=== PATIENT | female | born 1965 | race Caucasian/White ===

== ENCOUNTER 2019-02-25 19:47 | Inpatient (IN) | payer MEDICARE ==
[~2019-02-25] VITALS: Ht 157.5 cm; Wt 59.4 kg
--- NOTE | 2019-02-25 20:40 | NUR ---
Dr. Syed at bedside for MSE.
[2019-02-25] MEDS ORDERED: IV NORMAL SALINE 1000 ML BAG IV ONE (20:45)
[2019-02-25] MEDS ORDERED: ONDANSETRON 4 MG/2 ML VIAL IV ONE (20:45)
--- NOTE | 2019-02-25 20:57 | NUR ---
Xray at bedside.
[2019-02-25] MEDS ORDERED: ONDANSETRON 4 MG/2 ML VIAL ONE (21:01)
[2019-02-25 21:04] LABS: BASOPHILS % (AUTO) 0.2 % (0.0-2.0); EOSINOPHILS % (AUTO) 0.1 % (0.0-7.0); HEMATOCRIT 28.7 % (31.2-41.9); LYMPHOCYTES # (AUTO) 0.1 K/uL (20.0-40.0); MEAN CORPUSCULAR HGB CONC 32 g/dL (32.3-35.6); MEAN CORPUSCULAR VOLUME 72.9 fL (75.5-95.3); MONOCYTES # (AUTO) 0.4 K/uL (2.0-10.0); MONOCYTES % (AUTO) 6.4 % (0.0-11.0); NEUTROPHILS # (AUTO) 5.7 K/uL (1.8-8.9); NEUTROPHILS % (AUTO) 92.3 % (38.5-71.5); PLATELET COUNT (AUTO) 143 K/uL (179-408); RED BLOOD CELL COUNT(AUTO) 3.93 MIL/uL (3.63-4.92); WHITE BLOOD COUNT (AUTO) 6.1 K/uL (3.8-11.8)
[2019-02-25 21:16] LABS: BILIRUBIN,DIRECT 0.2 mg/dL (0.0-0.2); BILIRUBIN,TOTAL 0.7 mg/dL (0.2-1.0); CREATININE 0.6 mg/dL (0.6-1.3); POTASSIUM 3.9 mmol/L (3.5-5.1); TOTAL PROTEIN, SERUM 5.8 g/dL (6.4-8.2)
--- NOTE | 2019-02-25 21:55 | NUR ---
Dr. Syed on panel call with Dr. Samano.
[2019-02-25] MEDS ORDERED: CALC600T12 PO (22:12)
[2019-02-25] MEDS ORDERED: FLUO40CA49 PO (22:12)
[2019-02-25] MEDS ORDERED: CHOL100043 PO (22:12)
[2019-02-25] MEDS ORDERED: [UNRECOGNIZED DRUG - OTHER] PO (22:12)
[2019-02-25] MEDS ORDERED: FING0.5C3 PO (22:12)
[2019-02-25] MEDS ORDERED: RISE150T PO (22:12)
[2019-02-25] MEDS ORDERED: BACL10TA PO ×2 (22:12)
--- NOTE | 2019-02-25 22:54 | NUR ---
Report given to [place] [facility].
[2019-02-25] MEDS ORDERED: MAGNESIUM HYDROXIDE 30 ML LIQUID UDC PO PRN (23:45)
[2019-02-25] MEDS ORDERED: Z GUARD REMEDY PASTE 57 GM TUBE TOP PRN (23:45)
[2019-02-25] MEDS ORDERED: ONDANSETRON 4 MG/2 ML VIAL IV PRN (23:45)
[2019-02-25] MEDS ORDERED: HYDROCODONE/APAP 5-325MG TABLET PO PRN (23:45)
[2019-02-25] MEDS: IV NS 1000 ML 1,000 ML IV PRN (23:54)
[2019-02-25] MEDS: ACETAMINOPHEN 325 MG TABLET PO PRN (23:54)
[2019-02-26] VITALS: BP 100/41
--- NOTE | 2019-02-26 00:45 | NUR ---
PATIENT IS A 53 Y.O. FEMALE ADMIITED FOR BILATERAL LOWER EXTREMITIES WEAKNESS, SHE'S AAOX4, DENIES PAIN OR ANY DISTRESS ON ASSESSMENT. SAFETY AND FALL PRECAUTIONS INITIATED. CALL LIGHT LEFT WITHIN PATIENT'S REACH
[2019-02-26 06:29] LABS: EOSINOPHILS % (AUTO) 0.2 % (0.0-7.0); HEMATOCRIT 25.2 % (31.2-41.9); HEMOGLOBIN 7.9 g/dL (10.9-14.3); LYMPHOCYTES # (AUTO) 0.1 K/uL (20.0-40.0); LYMPHOCYTES % (AUTO) 2.7 % (20.5-51.5); MEAN CORPUSCULAR HGB CONC 31 g/dL (32.3-35.6); MEAN CORPUSCULAR VOLUME 73.7 fL (75.5-95.3); MONOCYTES # (AUTO) 0.3 K/uL (2.0-10.0); MONOCYTES % (AUTO) 8.6 % (0.0-11.0); NEUTROPHILS # (AUTO) 2.6 K/uL (1.8-8.9); NEUTROPHILS % (AUTO) 88.5 % (38.5-71.5); PLATELET COUNT (AUTO) 120 K/uL (179-408); RED BLOOD CELL COUNT(AUTO) 3.42 MIL/uL (3.63-4.92)
[2019-02-26 06:35] VITALS: BP 91/48
--- NOTE | 2019-02-26 06:45 | NUR ---
PATIENT ASLEEP WITH NO C/O OF PAIN OR ACUTE DISTRESS AT PRESENT. NO SIGNIFICANT CHANGES IN STATUS. SAFETY MEASURES MAINTAINED AT ALL TIMES
[2019-02-26 06:50] LABS: BILIRUBIN,TOTAL 0.6 mg/dL (0.2-1.0); CREATININE 0.7 mg/dL (0.6-1.3); PHOSPHOROUS 4.1 mg/dL (2.5-4.9); POTASSIUM 3.5 mmol/L (3.5-5.1); TOTAL PROTEIN, SERUM 5.1 g/dL (6.4-8.2)
--- NOTE | 2019-02-26 08:00 | NUR ---
AWAKE ALERT AND ORIENTED X3 NO SS OF PAIN OR DISTRESS BUT STILL C/O GEN WEAKNESS. CONTINUE WITH IVF ORDERED AND WILL START PHYSICAL THERAPY.
--- NOTE | 2019-02-26 11:00 | NUR ---
SEEN BY PHYSICAL THERAPY FOR EVAL, AMBULATED AROUND THE HALLWAY SEE NOTES
[2019-02-26 11:35] VITALS: BP 100/47
--- NOTE | 2019-02-26 13:26 | NUR ---
SEEN BY DR BERNAL FOR FOLLOW-UP AND DISCUSSED PLAN OF CARE. PLAN DISCHARGE OR ARU TODAY
[2019-02-26] MEDS: IV NS 1000 ML 1,000 ML IV PRN (14:25)
[2019-02-26 15:28] VITALS: BP 98/44
[2019-02-26 19:29] LABS: *BILIRUBIN,URIN NEGATIVE (NEGATIVE); *BLOOD, URINE NEGATIVE (NEGATIVE); *CLARITY,URINE CLEAR (CLEAR); *COLOR,URINE YELLOW (YELLOW); *KETONES,URINE NEGATIVE (NEGATIVE); *UROBILINOGEN,URINE 0.2 E.U./dl (NORMAL); LEUKOCYTE ESTERASE ,URINE NEGATIVE (NEGATIVE); NITRITE, URINE NEGATIVE (NEGATIVE); UGLUCOSE NEGATIVE (NEGATIVE)
[2019-02-26 19:38] LABS: MUCUS,URINE MODERATE /LPF (0-FEW); SQUAMOUS EPITHELIAL CELL,UR FEW /HPF (NONE SEEN); WBC,URINE 0-3 /HPF (0-3)
[2019-02-26 20:03] VITALS: BP 103/55
[2019-02-26] MEDS: ACETAMINOPHEN 325 MG TABLET PO PRN (20:27)
--- NOTE | 2019-02-26 20:55 | NUR ---
Received patient from the day shift. Patient is AOx4. No acute distress noted at this time. Reports headache 12/28. Tylenol given. Denies SOB. IV on right AC is intact and patent is on NS running at 75ml/hr. SCD are working bilaterally. Comfort and safety measures implemented. Bed is in low and locked position, rails are up x2. Call light within reach. All needs are met at this time. Will continue to monitor through the shift.
[2019-02-27 04:34] VITALS: BP 111/55
[2019-02-27] MEDS: IV NS 1000 ML 1,000 ML IV PRN (05:00)
--- NOTE | 2019-02-27 06:47 | NUR ---
Patient is asleep through the shift, denied pain. Comfort and safety measures implemented. Bed is in low and locked position, rails are up x2. Call light within reach. All needs are met at this time. Will endorse the report to the day shift.
--- NOTE | 2019-02-27 07:40 | NUR ---
IN BED RESTING WITH EYES CLOSE NO SS OF PAIN OR SS OF DISTRESS. CLOSELY MONITORED
--- NOTE | 2019-02-27 09:15 | NUR ---
SEEN BY DR BERNAL AND DISCUSSED PLAN OF CARE. POSSIBLE DC TO ARU THIS PM
[2019-02-27 11:38] VITALS: BP 112/49
--- NOTE | 2019-02-27 13:55 | NUR ---
AWAITING ORDER FOR TRANSFER TO ARU
--- NOTE | 2019-02-27 15:05 | NUR ---
TO SURGERY VIA BED WITH OR STAFF Addendum: 02/27/19 at 1512 by JUAN FRANCISCO HERNANDEZ RN ERROR
[2019-02-27 15:12] VITALS: BP 118/64
--- NOTE | 2019-02-27 15:36 | NUR ---
REPORT GIVEN TO MOLLY KOWALSKI TRANSFERRED TO ARU VIA WHEELCHAIR ACCOMPANIED BY STAFF
== END 2019-02-27 15:30 | DRG 392 ==
LOC: ER 19:47 → TELE3 22:58 → MEDSURG3 23:54
PROVIDERS: ADMIT Internal Medicine; ATTEND Internal Medicine
DX: K29.70 Gastritis, unspecified, without bleeding (principal); C50.912 Malignant neoplasm of unspecified site of left female breast; Z92.3 Personal history of irradiation; G35 Multiple sclerosis; D69.6 Thrombocytopenia, unspecified; D63.8 Anemia in other chronic diseases classified elsewhere; Z79.899 Other long term (current) drug therapy
CPT/HCPCS: 36415; 70030-TC; 71045; 83690; 84100; 85025; 85730; 87086; 93005; 97116; 97530; A4663; C1758; G0378; J2405; J7030

== ENCOUNTER 2019-02-27 15:10 | Inpatient (IN) | payer MEDICARE ==
[~2019-02-27] VITALS: Ht 157.5 cm; Wt 63.0 kg
[~2019-02-27 15:10] MED LIST: BACL10TA PO; CALC600T12 PO; CHOL100043 PO; FING0.5C3 PO; FLUO40CA49 PO; RISE150T PO
[2019-02-27 16:02] VITALS: BP 119/60
--- NOTE | 2019-02-27 18:20 | NUR ---
Admitted a 53 years old female patient at 1545 from [facility]. Pt. is under the care of Dr. Mari and Dr. Samano who came with the following dx: MS, bilateral lower extremity weakness, and breast CA on radiation. Patient has allergies to PCN. Patient is full code. Patient is A/Ox4 verbally responsive and able to make her needs known. No SOB or acute distress, on RA and tolerating well. Denies pain during assessment. Initial skin assessment performed, skin intact. Noted with RAC 20G, patent and intact. All pt. needs attended and met promptly. Lungs sounds clear to auscultation. MRSA swab completed per unit protocol. Pt. on a regular diet. Dr. Mari made aware of pt. admission. Called Dr. Samano and aware [facility] is needed. Kept pt. clean and dry. Safety measures in place. Call light and all frequently used items within pt. reach. Emphasize use of call light system, pt. verbalized clear understanding. Will endorse to oncoming shift accordingly.
--- NOTE | 2019-02-27 19:35 | NUR ---
Received patient in bed. AAO x 4. No acute distress or SOB noted. Able to make needs known. On room air. No Complain of pain. Pertinent assessments done. IV line on right AC intact, no sign of inflammation. Safety measures maintained. Bed in low position, brake and alarm on, side rails up x2 for safety. Call light and personal belongings within reach. Will continue to monitor
[2019-02-27 20:04] VITALS: BP 108/47
[2019-02-27] MEDS ORDERED: Medication Not On Formulary EA (Fluoxetine Hcl 40 MG) PO SCH (21:45)
[2019-02-27] MEDS: CALCIUM CARBONATE 600 MG TABLET PO SCH (21:45)
[2019-02-27] MEDS: BACLOFEN 10 MG TABLET PO SCH (22:04)
[2019-02-27] MEDS: CHOLECALCIFEROL 1,000 UNIT TABLET PO SCH (22:04)
--- NOTE | 2019-02-28 04:40 | NUR ---
End of the shift note Patient was stable throughout the shift and had a good sleep last night. No signs of acute distress or SOB noted. No Complain of pain. All due medication given as ordered and well tolerated. IV line in the right AC flushed, patent, no sign of inflammation. All needs attended promptly. Safety measures observed. Fall prevention maintained. Bed in low position, brake and alarm on, side rails up x2 for her safety. Will continue to monitor and will endorse to oncoming nurse accordingly.
[2019-02-28 04:49] VITALS: BP 115/57
[2019-02-28] MEDS ORDERED: Z GUARD REMEDY PASTE 57 GM TUBE TOP PRN (06:30)
--- NOTE | 2019-02-28 07:45 | NUR ---
Patient awake, alert, in bed, not in any form of acute distress. She denies any pain or discomfort at this time. Assisted with her needs. Call light placed within reach.
[2019-02-28 08:08] VITALS: BP 115/60
[2019-02-28] MEDS: BACLOFEN 10 MG TABLET PO SCH ×2 (09:48→18:21)
[2019-02-28] MEDS: CHOLECALCIFEROL 1,000 UNIT TABLET PO SCH (09:48)
[2019-02-28] MEDS: CALCIUM CARBONATE 600 MG TABLET PO SCH ×2 (09:48→18:21)
[2019-02-28] MEDS: FLUOXETINE HCL 20 MG CAPSULE PO SCH (09:55)
[2019-02-28 10:41] VITALS: BP 115/60
--- NOTE | 2019-02-28 12:33 | NUR ---
Received an order from Dr. Mari for tylenol 650mg PO Q 6 hrs PRN for complain of headache. Order carried out.
[2019-02-28] MEDS: ACETAMINOPHEN 325 MG TABLET PO PRN (13:27)
[2019-02-28 18:22] VITALS: BP 97/50
[2019-02-28 21:01] VITALS: BP 98/41
--- NOTE | 2019-02-28 21:37 | NUR ---
aaox4 ambulates to the BR with walker. incontinent of urine x2 at times.kept clean and dry no acute distress noted. denies any pain nor any discomfort. will monitor patient. tolerated po meds. no complaints of pain nor any discomfort. VSS.
[2019-03-01 05:11] VITALS: BP 109/41
--- NOTE | 2019-03-01 06:49 | NUR ---
slept well. needs attended. denies any pain nor any discomfort. kept comfortable. will monitor patient. fall precautions maintained. siderails up for safety.
[2019-03-01 07:25] VITALS: BP 105/47
[2019-03-01] MEDS: BACLOFEN 10 MG TABLET PO SCH ×2 (08:48→16:27)
[2019-03-01] MEDS: CHOLECALCIFEROL 1,000 UNIT TABLET PO SCH (08:48)
[2019-03-01] MEDS: CALCIUM CARBONATE 600 MG TABLET PO SCH ×2 (08:48→16:27)
[2019-03-01] MEDS: FLUOXETINE HCL 20 MG CAPSULE PO SCH (08:49)
[2019-03-01] MEDS ORDERED: [UNRECOGNIZED DRUG - OTHER] PO SCH (09:00)
--- NOTE | 2019-03-01 09:52 | NUR ---
Received pt. on bed, comfortable in no distress. A/Ox4 verbally responsive and able to make her needs known. Denies CP or SOB, on RA tolerating well with 95% SpO2. IV access on RAC d/c'd by previous shift, no bleeding. All due medications administered as ordered and tolerated well. All pt. needs attended and met promptly. Safety measures in place. Call light and all frequently used items within pt. reach.
[2019-03-01 16:18] VITALS: BP 107/45
--- NOTE | 2019-03-01 18:04 | NUR ---
End of shift note: No significant change during this shift. No sign of acute distress or SOB was noted. Kept pt clean and dry throughout this shift. Safety measures maintained. All needs attended and met promptly. Bed in low position, brake on, side rails up x2 as an enabler. Call light and all frequently used items within pt. reach. Will endorse to next shift accordingly
[2019-03-01 19:34] VITALS: BP 104/50
--- NOTE | 2019-03-01 21:11 | NUR ---
Received pt in bed, AAO x 4 in bed watching television. No acute distress noted. Verbally responsive and able to make needs known. Denies pain or discomfort at this time. Assisted to the bathroom x 1 using own walker with standby assistance. Tolerated well. Assisted back into bed. All safety measures and fall precautions maintained. Call light and all personal belongings within reach. Will continue to monitor.
[2019-03-02 06:35] VITALS: BP 93/48
--- NOTE | 2019-03-02 06:39 | NUR ---
AM vital signs noted to be 93/48 with HR 71, temp 98, RR 18. No acute distress noted. Pt denies any pain or discomfort, CP, SOB. Pt verbalized "feeling groggy, but not sick." Placed in trendelenberg, encouraged pt to increase PO fluid intake. Will re-check BP. Safety maintained. Call light within reach. Will continue to monitor.
--- NOTE | 2019-03-02 06:56 | NUR ---
Re-checked blood pressure, noted to be 113/53 with HR of 66. Pt verbalized feeling better, and feeling less groggy. Safety maintained. Call light within reach. No acute distress noted. Encouraged increased PO fluid intake, pt verbalized understanding. Will endorse accordingly to oncoming shift.
[2019-03-02 09:00] VITALS: BP 105/53
[2019-03-02] MEDS: FLUOXETINE HCL 20 MG CAPSULE PO SCH (09:02)
[2019-03-02] MEDS: CHOLECALCIFEROL 1,000 UNIT TABLET PO SCH (09:02)
[2019-03-02] MEDS: BACLOFEN 10 MG TABLET PO SCH ×2 (09:02→16:13)
[2019-03-02] MEDS: CALCIUM CARBONATE 600 MG TABLET PO SCH ×2 (09:03→16:14)
--- NOTE | 2019-03-02 09:26 | NUR ---
Received pt. on bed, comfortable in no distress. A/Ox4 verbally responsive and able to make her needs known. Denies CP or SOB, on RA tolerating well with 96% SpO2. All due medications administered as ordered and tolerated well. All pt. needs attended and met promptly. Safety measures in place. Call light and all frequently used items within pt. reach.
[2019-03-02 16:37] VITALS: BP 96/43
--- NOTE | 2019-03-02 16:59 | NUR ---
[employer] assessment completed today.
--- NOTE | 2019-03-02 19:40 | NUR ---
Received patient in bed. AAO x 4. Able to make needs known. No acute distress or SOB noted. Able to make needs known. On room air. No Complain of pain at this time. Pertinent assessments done. Safety measures maintained. Bed in low position, brake and alarm on, side rails up x2 for safety. Call light and personal belongings within reach. Will continue to monitor.
[2019-03-02 19:50] VITALS: BP 114/39
--- NOTE | 2019-03-03 05:39 | NUR ---
End of the shift note Patient was stable throughout the shift and had a good sleep last night. No signs of acute distress or SOB noted. No Complain of pain. All due medication given as ordered and well tolerated. Assisted her to the bathroom as needed. All needs attended promptly. Safety measures observed. Fall prevention maintained. Bed in low position, brake and alarm on, side rails up x2 for her safety. Will continue to monitor and will endorse to oncoming nurse accordingly.
[2019-03-03 06:07] VITALS: BP 96/56
--- NOTE | 2019-03-03 07:58 | NUR ---
RECEIVED PATIENT ASLEEP IN BED, NO ACUTE DISTRESS NOTED AT THIS TIME
[2019-03-03 08:45] VITALS: BP 96/46
[2019-03-03] MEDS: BACLOFEN 10 MG TABLET PO SCH ×2 (08:52→17:14)
[2019-03-03] MEDS: CALCIUM CARBONATE 600 MG TABLET PO SCH ×2 (08:52→17:15)
[2019-03-03] MEDS: CHOLECALCIFEROL 1,000 UNIT TABLET PO SCH (08:52)
[2019-03-03] MEDS: FLUOXETINE HCL 20 MG CAPSULE PO SCH (08:53)
--- NOTE | 2019-03-03 15:07 | NUR ---
examined by JUSTINE Mccarthy, reported about patient's blood pressure 96/46. However patient is asymptomatic at this time, and patient verbalized that her systolic blood pressure stays in 90s and diastolic stays in 50s. patient is alert, oriented x4, patient denied any dizziness. continue to monitor. Addendum: 03/03/19 at 1513 by SYDNEY MCKEON RN per JUSTINE Mccarthy continue to monitor, no new orders at this time.
[2019-03-03 17:30] VITALS: BP 100/49
--- NOTE | 2019-03-03 18:52 | NUR ---
PATIENT IS ALERT, ORIENTED X4, NO SOB, RESP EVEN NONLABORED,SKIN WARM AND DRY TO TOUCH, PATIENT TOLERATED PT, OT WELL, ASSISTED WITH ADLS, TOLERATED MEALS AND MEDS WELL, PATIENT DENIED ANY PAIN DURING THE SHIFT, WILL ENDORSE ACCORDINGLY TO NEXT SHIFT
[2019-03-03 20:20] VITALS: BP 122/56
--- NOTE | 2019-03-03 20:46 | NUR ---
resting in bed upon initial rounds. aaox4 no acute distress noted. needs attended. VSS. OOB to BR with walker under supervision. Voiding freely. Denies any pain nor any discomfort. Will monitor patient. BP 122/56 HR 78 Resp 18 Temp 98.2 Kept comfortable. Fall precautions maintained. Siderails up for safety. Call ramsey within reach.
[2019-03-04 04:25] VITALS: BP 102/48
--- NOTE | 2019-03-04 06:14 | NUR ---
quiet night. aaox4 no acute distress noted. needs attended. VSS oob to the BR with walker. Voiding well. will monitor patient. kept comfortable.
[2019-03-04 07:15] LABS: BASOPHILS % (AUTO) 0.6 % (0.0-2.0); EOSINOPHILS # (AUTO) 0.1 K/uL (0.0-0.7); EOSINOPHILS % (AUTO) 1.6 % (0.0-7.0); HEMATOCRIT 26.8 % (31.2-41.9); HEMOGLOBIN 8.5 g/dL (10.9-14.3); LYMPHOCYTES # (AUTO) 0.2 K/uL (20.0-40.0); LYMPHOCYTES % (AUTO) 5.3 % (20.5-51.5); MEAN CORPUSCULAR HGB CONC 32 g/dL (32.3-35.6); MEAN CORPUSCULAR VOLUME 72.3 fL (75.5-95.3); MONOCYTES # (AUTO) 0.5 K/uL (2.0-10.0); MONOCYTES % (AUTO) 12.1 % (0.0-11.0); NEUTROPHILS # (AUTO) 3.4 K/uL (1.8-8.9); NEUTROPHILS % (AUTO) 80.4 % (38.5-71.5); PLATELET COUNT (AUTO) 273 K/uL (179-408); WHITE BLOOD COUNT (AUTO) 4.3 K/uL (3.8-11.8)
[2019-03-04 07:27] LABS: BILIRUBIN,TOTAL 0.3 mg/dL (0.2-1.0); CREATININE 0.5 mg/dL (0.6-1.3); POTASSIUM 4.8 mmol/L (3.5-5.1); TOTAL PROTEIN, SERUM 5.8 g/dL (6.4-8.2)
[2019-03-04 07:42] LABS: EOSINOPHILS % (MANUAL) 1 % (0-8); LYMPHOCYTES % (MANUAL) 9 % (20-40); MONOCYTES % (MANUAL) 6 % (2-10); NEUTROPHILS % (MANUAL) 84 % (42-75)
[2019-03-04 07:56] LABS: THYROID STIMULATING HORMONE 0.976 mIU/mL (0.358-3.740)
--- NOTE | 2019-03-04 08:04 | NUR ---
Patient assisted with ADL's at this time, brace applied to right leg, took all AM medications, no complaints of pain, no signs of distress noted, call light in reach, bed locked and in lowest position, all needs known
[2019-03-04] MEDS: FLUOXETINE HCL 20 MG CAPSULE PO SCH (08:30)
[2019-03-04] MEDS: BACLOFEN 10 MG TABLET PO SCH ×2 (08:30→17:39)
[2019-03-04] MEDS: CALCIUM CARBONATE 600 MG TABLET PO SCH ×2 (08:31→17:39)
[2019-03-04] MEDS: CHOLECALCIFEROL 1,000 UNIT TABLET PO SCH (08:31)
[2019-03-04 09:00] VITALS: BP 97/40
--- NOTE | 2019-03-04 17:55 | NUR ---
No changes this shift, no complaints of pain, no signs of distress noted, assisted to restroom for toileting
[2019-03-04 18:07] VITALS: BP 100/42
[2019-03-04 19:44] VITALS: BP 98/50
--- NOTE | 2019-03-04 20:13 | NUR ---
aaox 4 needs attended. resting in bed upon initial rounds. VSS. OOB to the BR with walker. voiding well. making needs known. denies any pain nor any discomfort. will monitor patient.
[2019-03-05 06:20] VITALS: BP 108/54
--- NOTE | 2019-03-05 06:23 | NUR ---
slept well most of the night. denies any pain nor any distress. ambulates to the BR with walker. making needs known. VSS.
[2019-03-05] MEDS: FLUOXETINE HCL 20 MG CAPSULE PO SCH (08:10)
[2019-03-05] MEDS: BACLOFEN 10 MG TABLET PO SCH ×2 (08:10→16:21)
[2019-03-05] MEDS: CALCIUM CARBONATE 600 MG TABLET PO SCH ×2 (08:10→16:21)
[2019-03-05] MEDS: CHOLECALCIFEROL 1,000 UNIT TABLET PO SCH (08:10)
--- NOTE | 2019-03-05 08:15 | NUR ---
Patient assisted to restroom at this time, assisted with dressing, no complaints of pain, no signs of distress, call light in reach, bed locked and in lowest position, took all AM medications, all needs met at this time
[2019-03-05 08:35] VITALS: BP 103/48
[2019-03-05 18:10] VITALS: BP 100/51
[2019-03-05 19:20] VITALS: BP 101/56
--- NOTE | 2019-03-05 19:47 | NUR ---
resting in bed watching TV upon initial rounds. aaox4 no acute distress noted kept comfortable. will monitor patient. VSS. making needs known. ambulates with walker to the BR. voiding well.
[2019-03-06 06:07] VITALS: BP 97/47
--- NOTE | 2019-03-06 06:52 | NUR ---
quiet night. slept well throughout the night.VSS needs attended. OOB with walker to the BR. Voiding freely. Denies any pain nor any discomfort. making needs attended.
[2019-03-06 07:11] LABS: BASOPHILS % (AUTO) 0.3 % (0.0-2.0); EOSINOPHILS # (AUTO) 0.1 K/uL (0.0-0.7); EOSINOPHILS % (AUTO) 1.2 % (0.0-7.0); HEMATOCRIT 27.1 % (31.2-41.9); HEMOGLOBIN 8.5 g/dL (10.9-14.3); LYMPHOCYTES # (AUTO) 0.3 K/uL (20.0-40.0); LYMPHOCYTES % (AUTO) 4.9 % (20.5-51.5); MEAN CORPUSCULAR HEMOGLOBIN 22.6 uug (24.7-32.8); MEAN CORPUSCULAR HGB CONC 31 g/dL (32.3-35.6); MEAN CORPUSCULAR VOLUME 72.2 fL (75.5-95.3); MONOCYTES # (AUTO) 0.7 K/uL (2.0-10.0); MONOCYTES % (AUTO) 12.3 % (0.0-11.0); NEUTROPHILS # (AUTO) 4.5 K/uL (1.8-8.9); NEUTROPHILS % (AUTO) 81.3 % (38.5-71.5); PLATELET COUNT (AUTO) 267 K/uL (179-408); RED BLOOD CELL COUNT(AUTO) 3.76 MIL/uL (3.63-4.92)
[2019-03-06 07:20] LABS: WHITE BLOOD COUNT (AUTO) 5.6 K/uL (3.8-11.8)
--- NOTE | 2019-03-06 07:42 | NUR ---
Received patient in bed, awake, alert, not in any form of acute distress. She denies any pain or discomfort at this time. Frequently used items placed within reach. Call light placed within reach.
[2019-03-06 07:52] LABS: BASOPHILS % (MANUAL) 1 % (0-2); LYMPHOCYTES % (MANUAL) 4 % (20-40); MONOCYTES % (MANUAL) 9 % (2-10); NEUTROPHILS % (MANUAL) 86 % (42-75)
[2019-03-06 07:53] LABS: BILIRUBIN,TOTAL 0.2 mg/dL (0.2-1.0); CREATININE 0.5 mg/dL (0.6-1.3); PHOSPHOROUS 4.3 mg/dL (2.5-4.9); TOTAL PROTEIN, SERUM 5.8 g/dL (6.4-8.2)
[2019-03-06 08:45] VITALS: BP 101/47
[2019-03-06] MEDS: FLUOXETINE HCL 20 MG CAPSULE PO SCH (08:48)
[2019-03-06] MEDS: BACLOFEN 10 MG TABLET PO SCH ×2 (08:48→17:00)
[2019-03-06] MEDS: CALCIUM CARBONATE 600 MG TABLET PO SCH ×2 (08:48→17:00)
[2019-03-06] MEDS: CHOLECALCIFEROL 1,000 UNIT TABLET PO SCH (08:48)
--- NOTE | 2019-03-06 13:38 | NUR ---
INTERDISCIPLINARY TEAM CONFERENCE
[2019-03-06 16:45] VITALS: BP 103/45
--- NOTE | 2019-03-06 19:50 | NUR ---
Received pt in bed, AAO x 4 with family member at bedside. No acute distress noted. Verbally responsive and able to make needs known. Denies pain or discomfort at this time. All safety measures and fall precautions maintained. Call light and all personal belongings within reach. Will continue to monitor.
[2019-03-06 20:01] VITALS: BP 97/49
[2019-03-06] MEDS: ATORVASTATIN 10 MG TABLET PO SCH (21:14)
[2019-03-07 05:15] VITALS: BP 116/50
--- NOTE | 2019-03-07 07:45 | NUR ---
patient received in bed, awake, alert, oriented x4, verbally responsive, no sob, resp even nonlabored, no acute distress noted.
[2019-03-07 08:00] VITALS: BP 96/48
[2019-03-07] MEDS: BACLOFEN 10 MG TABLET PO SCH ×2 (08:45→16:52)
[2019-03-07] MEDS: CHOLECALCIFEROL 1,000 UNIT TABLET PO SCH (08:46)
[2019-03-07] MEDS: FERROUS GLUCONATE 324 MG TABLET PO SCH ×2 (08:46→17:06)
[2019-03-07] MEDS: CALCIUM CARBONATE 600 MG TABLET PO SCH ×2 (08:46→16:52)
[2019-03-07] MEDS: FLUOXETINE HCL 20 MG CAPSULE PO SCH (08:49)
[2019-03-07 16:43] VITALS: BP 119/72
--- NOTE | 2019-03-07 18:34 | NUR ---
patient is alert, oriented x4, verbally responsive, no sob, resp even nonlabored,no acute distress noted, assisted to bathroom as needed.
[2019-03-07 19:45] VITALS: BP 112/76
--- NOTE | 2019-03-07 19:53 | NUR ---
Received patient in bed. AAO x 4. Able to make needs known. No acute distress or SOB noted. Able to make needs known. On room air. No Complain of pain at this time. Her mother was at bedside. Pertinent assessments done. Fall precaution observed. Safety measures maintained. Bed in low position, brake and alarm on, side rails up x2 for safety. Call light and personal belongings within reach. Will continue to monitor.
[2019-03-07] MEDS: ATORVASTATIN 10 MG TABLET PO SCH (20:24)
[2019-03-07 20:34] LABS: *BILIRUBIN,URIN NEGATIVE (NEGATIVE); *BLOOD, URINE NEGATIVE (NEGATIVE); *CLARITY,URINE CLOUDY (CLEAR); *COLOR,URINE LIGHT YELLOW (YELLOW); *KETONES,URINE NEGATIVE (NEGATIVE); *UROBILINOGEN,URINE 0.2 E.U./dl (NORMAL); LEUKOCYTE ESTERASE ,URINE 2+ (NEGATIVE); NITRITE, URINE POSITIVE (NEGATIVE); UGLUCOSE NEGATIVE (NEGATIVE)
[2019-03-07 20:52] LABS: BACTERIA,URINE MANY /HPF (NONE SEEN); RBC,URINE 0-3 /HPF (0-3); SQUAMOUS EPITHELIAL CELL,UR FEW /HPF (NONE SEEN); WBC,URINE 80-100 /HPF (0-3)
[2019-03-08 06:22] VITALS: BP 109/54
--- NOTE | 2019-03-08 07:46 | NUR ---
patient received in bed, asleep, no sob,resp even nonlabored,skin warm and dry to touch, no acute distress noted.
[2019-03-08 09:00] VITALS: BP 100/50
[2019-03-08] MEDS: CHOLECALCIFEROL 1,000 UNIT TABLET PO SCH (09:02)
[2019-03-08] MEDS: BACLOFEN 10 MG TABLET PO SCH ×2 (09:03→17:19)
[2019-03-08] MEDS: CALCIUM CARBONATE 600 MG TABLET PO SCH ×2 (09:03→17:19)
[2019-03-08] MEDS: FLUOXETINE HCL 20 MG CAPSULE PO SCH (09:04)
[2019-03-08] MEDS: FERROUS GLUCONATE 324 MG TABLET PO SCH ×2 (09:05→17:25)
--- NOTE | 2019-03-08 09:45 | NUR ---
reported UA result to dr Freitas with order to start on Bactrim DS 1 tab twice a day for 7 days, order noted.
[2019-03-08] MEDS: SULFAMETH/TRIMETH 800/160 MG TABLET PO SCH ×2 (10:56→17:19)
--- NOTE | 2019-03-08 12:14 | NUR ---
patient is alert, oriented x4, verbally responsive, no sob respirations are even nonlabored,skin warm and dry to touch, started on Bactrim DS as ordered for UTI, first dose administered, instructions and education given for antibiotic therapy, patient verbalized understanding, no adverse reactions noted, no nausea, no vomiting, no rashes. patient noted with frequency, urine is cloudy and with odor, good perineal care provided, encouraged patient to drink more fluids as tolerated, continue to monitor vitals are 100/50, pulse 84,resp 16,temp 98.0, o2 sat at room air 97% taken at 9am.
[2019-03-08 13:53] LABS: *OCCULT BLOOD STOOL NEGATIVE (NEGATIVE)
[2019-03-08 17:30] VITALS: BP 120/60
--- NOTE | 2019-03-08 18:17 | NUR ---
End of shift note patient is alert, oriented x4, no sob,respirations even nonlabored,skin warm and dry to touch, continue on Bactrim DS as ordered, no adverse reactions noted, such as no nausea, no vomiting, no rashes noted, patient tolerated meals and meds well, Assisted with adls. encouraged to drink more fluids as tolerated, education given on good perineal care, patient verbalized understanding. no acute distress noted.
[2019-03-08 19:45] VITALS: BP 99/56
[2019-03-08] MEDS: ATORVASTATIN 10 MG TABLET PO SCH (20:39)
--- NOTE | 2019-03-08 21:18 | NUR ---
awake alert and oriented x4 OOB with walker to BR. Voiding freely. no acute distress noted. Needs attended. VSS Denies any pain nor any discomfort. compliant with meds and care. fall precautions maintained. siderails up for safety.
[2019-03-09 05:41] VITALS: BP 103/45
--- NOTE | 2019-03-09 05:54 | NUR ---
OOB to the BR with walker x4 voiding well. needs attended. denies any pain nor any discomfort. BP 101/45 patient asymptomatic. no acute distress noted.
[2019-03-09] MEDS: SULFAMETH/TRIMETH 800/160 MG TABLET PO SCH ×2 (08:05→17:27)
[2019-03-09] MEDS: CHOLECALCIFEROL 1,000 UNIT TABLET PO SCH (08:05)
[2019-03-09] MEDS: FERROUS GLUCONATE 324 MG TABLET PO SCH ×2 (08:05→17:27)
[2019-03-09] MEDS: BACLOFEN 10 MG TABLET PO SCH ×2 (08:05→17:27)
[2019-03-09] MEDS: FLUOXETINE HCL 20 MG CAPSULE PO SCH (08:05)
[2019-03-09] MEDS: CALCIUM CARBONATE 600 MG TABLET PO SCH ×2 (08:06→17:27)
[2019-03-09 09:51] VITALS: BP 112/63
[2019-03-09 18:28] VITALS: BP 96/50
--- NOTE | 2019-03-09 18:30 | NUR ---
received patient in bed, awake and orientedx4. Continue therapy for ambulation and transfer. Continue on pain management with good effect. Continue ATB treatment Bactrim for UTI. no adverse reaction noted. BRP with FWW. Fall precaution maintained. no complaint voiced. will continue monitor
[2019-03-09 20:17] VITALS: BP 119/72
[2019-03-09] MEDS: ATORVASTATIN 10 MG TABLET PO SCH (20:57)
--- NOTE | 2019-03-09 21:19 | NUR ---
resting in bed upon initial rounds. OOB with walker to the BR. voiding well. wears diapers too especially at night. no BM this shift. On Bactrim DS for UTI. Tolerated well. No ill effects noted. VSS. Denies any pain nor any discomfort. Will monitor patient. Fall precautions maintained. Siderails up for safety.
[2019-03-10 05:59] VITALS: BP 97/54
--- NOTE | 2019-03-10 06:21 | NUR ---
quiet night. aaox4 ambulates to the BR with walker. needs attended. denies any pain nor any discomfort. VSS. On bactrim for UTI. Tolerated well. No ill effects noted. kept comfortable.
--- NOTE | 2019-03-10 07:35 | NUR ---
Received patient in bed, awake, alert, not in any form of acute distress. She denies any pain or discomfort at this time. Assisted with her needs. Call light and frequently used items placed within reach.
[2019-03-10 08:20] VITALS: BP 106/68
[2019-03-10] MEDS: CHOLECALCIFEROL 1,000 UNIT TABLET PO SCH (08:21)
[2019-03-10] MEDS: BACLOFEN 10 MG TABLET PO SCH ×2 (08:21→17:04)
[2019-03-10] MEDS: SULFAMETH/TRIMETH 800/160 MG TABLET PO SCH ×2 (08:21→17:04)
[2019-03-10] MEDS: FERROUS GLUCONATE 324 MG TABLET PO SCH ×2 (08:22→17:05)
[2019-03-10] MEDS: FLUOXETINE HCL 20 MG CAPSULE PO SCH (08:22)
[2019-03-10] MEDS: CALCIUM CARBONATE 600 MG TABLET PO SCH ×2 (08:22→17:04)
[2019-03-10 15:00] VITALS: BP 98/65
[2019-03-10] MEDS: ACETAMINOPHEN 325 MG TABLET PO PRN (17:09)
[2019-03-10 19:35] VITALS: BP 104/56
[2019-03-10] MEDS: ATORVASTATIN 10 MG TABLET PO SCH (20:14)
--- NOTE | 2019-03-10 20:59 | NUR ---
Received pt resting in bed. AAO x4. No acute distress noted. C/o 11/27 headache, pt stated that she already had tylenol in the afternoon. Due med given as ordered. VSS. No redness on sacrum noted. Assisted to the bathroom 2x. Safety measures maintained. Call light and personal belongings within reach. Will continue to monitor.
[2019-03-11 04:00] VITALS: BP 109/47
[2019-03-11 08:30] VITALS: BP 97/49
[2019-03-11] MEDS: FLUOXETINE HCL 20 MG CAPSULE PO SCH (08:57)
[2019-03-11] MEDS: CHOLECALCIFEROL 1,000 UNIT TABLET PO SCH (08:57)
[2019-03-11] MEDS: SULFAMETH/TRIMETH 800/160 MG TABLET PO SCH ×2 (08:57→16:41)
[2019-03-11] MEDS: FERROUS GLUCONATE 324 MG TABLET PO SCH ×2 (08:57→18:02)
[2019-03-11] MEDS: CALCIUM CARBONATE 600 MG TABLET PO SCH ×2 (08:57→16:41)
[2019-03-11] MEDS: BACLOFEN 10 MG TABLET PO SCH ×2 (08:58→16:41)
--- NOTE | 2019-03-11 10:41 | NUR ---
Received pt. on bed, comfortable in no distress. A/Ox4 verbally responsive and able to make her needs known. Denies CP or SOB, on RA tolerating well with 99% SpO2. All due medications administered as ordered and tolerated well. On Bactrim DS for UTI, no ASE noted. All pt. needs attended and met promptly. Safety measures in place. Call light and all frequently used items within pt. reach.
[2019-03-11 16:47] VITALS: BP 101/49
[2019-03-11 19:51] VITALS: BP 103/56
[2019-03-11] MEDS: ATORVASTATIN 10 MG TABLET PO SCH (20:10)
--- NOTE | 2019-03-11 20:55 | NUR ---
Received pt resting in bed. AAO x4. No acute distress noted. Denies pain or discomfort. VSS. Due med given as ordered. Pt to be d/c tomorrow, TMS signed and placed in chart. Safety measures maintained. Call light and personal belongings within reach. Will continue to monitor.
[2019-03-12 05:00] VITALS: BP 95/52
[2019-03-12 08:30] VITALS: BP 100/54
[2019-03-12] MEDS: SULFAMETH/TRIMETH 800/160 MG TABLET PO SCH (09:06)
[2019-03-12] MEDS: FLUOXETINE HCL 20 MG CAPSULE PO SCH (09:06)
[2019-03-12] MEDS: FERROUS GLUCONATE 324 MG TABLET PO SCH (09:06)
[2019-03-12] MEDS: BACLOFEN 10 MG TABLET PO SCH (09:07)
[2019-03-12] MEDS: CHOLECALCIFEROL 1,000 UNIT TABLET PO SCH (09:07)
[2019-03-12] MEDS: CALCIUM CARBONATE 600 MG TABLET PO SCH (09:07)
--- NOTE | 2019-03-12 09:17 | NUR ---
Received pt. on bed, comfortable in no distress. A/Ox4 verbally responsive and able to make her needs known. Denies CP or SOB. All due medications administered as ordered and tolerated well. On Bactrim DS for UTI, no ASE noted. Pt. schedule to d/c home today, received orders from Dr. Mari. Orders noted and carried out. All pt. needs attended and met promptly. Safety measures in place. Call light and all frequently used items within pt. reach.
[2019-03-12 12:42] VITALS: BP 101/52
--- NOTE | 2019-03-12 14:19 | NUR ---
Discharge Note: Pt. received all due medication as ordered. ADL performed with RN and tolerated well. Resident remained stable at this time. Dr. Mari deemed pt. safe for discharge today 03/12/19. Routine round with pt; pt. remain cooperative, A/OX4 with capacity to make decision. Lungs sounds clear to auscultation bilaterally, no respiratory distress. Heart with regular rate and rhythm, no murmur, rub or gallop. Abdomen soft, non-tender, bowel sounds present in all 4 quadrants. Conjunctivae clear, PERRL. Pt. served with lunch as ordered and tolerated well. All belongings are prepared. Inventory done all accountable for. Instructed pt. to follow up with PCP. Pt. teaching provided which include but not limited to meds administration, risk of fall, and skin mgt. Faxed RX to pt. choice of pharmacy. Gave pt. information regarding returning to community. Discharge paper signed by pt. Provided pt. discharge packet. No further questions from the resident about the discharge instructions at this time and verbalized clear understanding. Assisted resident safely via [employer] to [employer] vehicle. Res. left the facility at 1410 and d/c to home with out pt. rehab to provide PT/OT. MD made aware of resident discharge. Addendum: 03/12/19 at 1429 by TORRES JETER RN Original RX given to pt. upon d/c.
[2019-03-21] MEDS ORDERED: RISEDRONATE SODIUM 150 MG PO SCH (06:00)
== END 2019-03-12 14:10 | disposition home or self-care (01) | DRG 58 ==
PROVIDERS: ADMIT Physical Medicine & Rehabilitation Pain Medicine; ATTEND Physical Medicine & Rehabilitation Pain Medicine
DX: G35 Multiple sclerosis (principal); E43 Unspecified severe protein-calorie malnutrition; N39.0 Urinary tract infection, site not specified; D63.8 Anemia in other chronic diseases classified elsewhere; C50.919 Malignant neoplasm of unspecified site of unspecified female breast; R53.1 Weakness; B96.20 Unspecified Escherichia coli [E. coli] as the cause of diseases classified elsewhere; D69.6 Thrombocytopenia, unspecified; E55.9 Vitamin D deficiency, unspecified; E78.5 Hyperlipidemia, unspecified; F32.9 Major depressive disorder, single episode, unspecified; K29.70 Gastritis, unspecified, without bleeding; Z85.3 Personal history of malignant neoplasm of breast; Z91.81 History of falling; Z88.0 Allergy status to penicillin
CPT/HCPCS: 36415; 82652; 83550; 83735; 84100; 84443; 85025; 87077; 87086; 92523; 92526; 92610; 97110; 97112; 97116; 97165; 97530; 97535

== ENCOUNTER 2021-10-24 13:20 | Inpatient (IN) | payer MEDICARE ==
[~2021-10-24] VITALS: Ht 157.5 cm; Wt 65.9 kg
[~2021-10-24 13:20] MED LIST changes: -CALC600T12 PO; +CALC600T35 PO
[2021-10-24] MEDS ORDERED: Z GUARD REMEDY PASTE 57 GM TUBE TOP PRN (18:45)
--- NOTE | 2021-10-24 19:36 | NUR ---
Patient arrived onto unit via gurney. Admitted form [facility] for MS, increased weakness. A&Ox4. Pleasant and cooperative. Skin intact. No IV access. Safety precautions in place, call light within reach, will endorse accordingly
--- NOTE | 2021-10-24 19:40 | NUR ---
Received pt sitting up in bed, AO x 4, on room air saturating at 97%, no signs of acute distress. No complaints or discomfort at this time. Medication reconciliation documented. Call lights within reach, safety measures initiated. Belongs placed by bedside and within reach.
[2021-10-24] MEDS ORDERED: ATOR10TA PO (19:55)
[2021-10-24] MEDS ORDERED: BACL10TA PO (19:56)
[2021-10-24] MEDS ORDERED: ENOX40DI SQ (19:59)
[2021-10-24] MEDS ORDERED: FLUO40CA49 PO (20:08)
[2021-10-24] MEDS ORDERED: LEVO500T90 PO (20:09)
[2021-10-24] MEDS ORDERED: MELA5TAB PO (20:10)
[2021-10-24] MEDS ORDERED: ONDA4TAB11 PO (20:11)
[2021-10-24] MEDS ORDERED: RALO60TA PO (20:12)
[2021-10-24] MEDS ORDERED: CHOL200026 (20:14)
[2021-10-24] MEDS ORDERED: ACET-2154 PO (20:16)
[2021-10-25 04:00] VITALS: BP 110/64
--- NOTE | 2021-10-25 06:01 | NUR ---
Slept throughout the night, AO x 4, on room air saturating at 96%, assisted to bathroom with walker, all needs stated and met. No signs of acute distress. No complaints at this time. Call lights within reach, safety measures maintained. Will endorse to am shift.
[2021-10-25 07:55] VITALS: BP 112/59
--- NOTE | 2021-10-25 08:57 | NUR ---
INTERDISCIPLINARY TEAM CONFERENCE
[2021-10-25] MEDS ORDERED: ONDANSETRON ODT 4 MG TAB.RAPDIS SL PRN (10:15)
[2021-10-25] MEDS ORDERED: MELATONIN 3 MG TABLET PO PRN (10:15)
[2021-10-25] MEDS: ENOXAPARIN SODIUM 40 MG/0.4 ML DISP.SYRIN SQ SCH (10:43)
[2021-10-25 16:00] VITALS: BP 102/61
[2021-10-25] MEDS: CALCIUM CARBONATE 600 MG TABLET PO SCH (16:59)
--- NOTE | 2021-10-25 18:42 | NUR ---
The patient remained stable during the shift. No acute distress identified. Denies pain. Kept call light within reach. Safety precaution maintained. All due meds given. All needs attended. Endorsed to the next shift for continuity of care.
[2021-10-25] MEDS ORDERED: levoFLOXacin 750 MG TABLET PO SCH (18:45)
--- NOTE | 2021-10-25 19:33 | NUR ---
AO x 4. On room air saturating at 97%. Pt is able to state all needs. Denies any pain or discomfort. No signs of acute distress. Call lights within reach, safety measures initiated. Belongings placed by bedside within reach.
[2021-10-25] MEDS: levoFLOXacin 750 MG TABLET PO SCH (20:08)
[2021-10-25] MEDS: ATORVASTATIN 10 MG TABLET PO SCH (20:08)
[2021-10-25 20:15] VITALS: BP 110/65
[2021-10-26 04:25] VITALS: BP 107/50
[2021-10-26 06:33] LABS: HEMATOCRIT 35.7 % (31.2-41.9); MEAN CORPUSCULAR HEMOGLOBIN 30.4 uug (24.7-32.8); MEAN CORPUSCULAR VOLUME 88.9 fL (75.5-95.3); PLATELET COUNT (AUTO) 176 K/uL (179-408)
[2021-10-26 07:50] LABS: BILIRUBIN,TOTAL 0.6 mg/dL (0.2-1.0); CREATININE 0.8 mg/dL (0.6-1.3); MAGNESIUM 2.1 mg/dL (1.8-2.4); PHOSPHOROUS 3.8 mg/dL (2.5-4.9); TOTAL PROTEIN, SERUM 7.6 g/dL (6.4-8.2)
[2021-10-26 08:35] VITALS: BP 120/64
[2021-10-26 08:59] LABS: THYROID STIMULATING HORMONE 1.624 mIU/mL (0.358-3.740)
[2021-10-26] MEDS ORDERED: Medication Not On Formulary EA (Fluoxetine Hcl 40 MG) PO SCH (09:00)
[2021-10-26] MEDS: CHOLECALCIFEROL 1,000 UNIT TABLET PO SCH (09:07)
[2021-10-26] MEDS: CALCIUM CARBONATE 600 MG TABLET PO SCH ×2 (09:08→17:39)
[2021-10-26] MEDS: FLUOXETINE HCL 20 MG CAPSULE PO SCH (09:15)
[2021-10-26] MEDS: RALOXIFENE HCL 60 MG TABLET PO SCH (09:16)
[2021-10-26] MEDS: ENOXAPARIN SODIUM 40 MG/0.4 ML DISP.SYRIN SQ SCH (09:59)
--- NOTE | 2021-10-26 10:00 | NUR ---
Received pt sitting up in bed, AO x 4, on room air saturating at 98%, no signs of acute distress. No complaints or discomfort at this time. Medication given as order able to swallow well , ambulate to BR with waker assist one person Assist. Call lights within reach, safety measures initiated. Belongs placed by bedside and within reach.
[2021-10-26 15:58] VITALS: BP 112/68
--- NOTE | 2021-10-26 17:00 | NUR ---
Received a called from [facility] [employer] to see if we can obtain the MRI records taken at [place] Spoke to PT and she said she felt uncomfortable showing the telephone pictures of the MRI she has she stated that [facility] is arranging telehealth visits with her neurologist within a week as per discharge instructions . I called back to [facility] and let him know.
[2021-10-26 20:20] VITALS: BP 120/62
[2021-10-26] MEDS: ATORVASTATIN 10 MG TABLET PO SCH (20:41)
[2021-10-26] MEDS: levoFLOXacin 750 MG TABLET PO SCH (20:42)
[2021-10-27 04:25] VITALS: BP 108/51
--- NOTE | 2021-10-27 06:10 | NUR ---
Patient remained stable during the shift. Denies pain/discomfort. Frequent checks done and standby assist during bathroom use. Safety precautions maintained. All due meds given. all needs attended. Call light within reach. Will endorse to the next shift for continuity of care.
[2021-10-27 08:00] VITALS: BP 107/60
[2021-10-27] MEDS: FLUOXETINE HCL 20 MG CAPSULE PO SCH (08:06)
[2021-10-27] MEDS: CHOLECALCIFEROL 1,000 UNIT TABLET PO SCH (08:06)
[2021-10-27] MEDS: CALCIUM CARBONATE 600 MG TABLET PO SCH ×2 (08:06→17:00)
[2021-10-27] MEDS: RALOXIFENE HCL 60 MG TABLET PO SCH (08:07)
[2021-10-27] MEDS: ENOXAPARIN SODIUM 40 MG/0.4 ML DISP.SYRIN SQ SCH (08:08)
[2021-10-27] MEDS ORDERED: [UNRECOGNIZED DRUG - OTHER] PO SCH (09:00)
[2021-10-27] MEDS ORDERED: FINGOLIMOD 0.5 MG PO SCH (09:00)
[2021-10-27] MEDS ORDERED: [UNRECOGNIZED DRUG - OTHER] PO SCH (09:00)
--- NOTE | 2021-10-27 14:02 | NUR ---
INDIVIDUALIZED PLAN OF CARE
[2021-10-27 16:10] VITALS: BP 108/57
--- NOTE | 2021-10-27 19:17 | NUR ---
No changes noted during shift
[2021-10-27] MEDS: levoFLOXacin 750 MG TABLET PO SCH (20:10)
[2021-10-27] MEDS: ATORVASTATIN 10 MG TABLET PO SCH (20:10)
[2021-10-27 20:25] VITALS: BP 119/65
[2021-10-28 04:20] VITALS: BP 118/67
--- NOTE | 2021-10-28 06:59 | NUR ---
Pt slept throughout the night, easily arousable for care and able to make needs known. On room air, no respiratory distress noted. BRP with walker and assistance. All needs attended. Call light placed within reach. Frequent visual checks done. Will endorse to next shift for continuity of care.
[2021-10-28 08:59] VITALS: BP 100/43
[2021-10-28] MEDS: CHOLECALCIFEROL 1,000 UNIT TABLET PO SCH (10:46)
[2021-10-28] MEDS: CALCIUM CARBONATE 600 MG TABLET PO SCH ×2 (10:46→17:04)
[2021-10-28] MEDS: RALOXIFENE HCL 60 MG TABLET PO SCH (10:47)
[2021-10-28] MEDS: FLUOXETINE HCL 20 MG CAPSULE PO SCH (10:47)
[2021-10-28] MEDS: ENOXAPARIN SODIUM 40 MG/0.4 ML DISP.SYRIN SQ SCH (10:48)
[2021-10-28 11:49] VITALS: BP 100/54
[2021-10-28] MEDS: ATORVASTATIN 10 MG TABLET PO SCH (20:08)
[2021-10-28 20:09] VITALS: BP_SYST 110; BP_SYST 137; BP_DIAS 65; BP_DIAS 78
[2021-10-28] MEDS: levoFLOXacin 750 MG TABLET PO SCH (20:09)
[2021-10-29 04:09] VITALS: BP 106/53
[2021-10-29] MEDS: FLUOXETINE HCL 20 MG CAPSULE PO SCH (07:57)
[2021-10-29] MEDS: CALCIUM CARBONATE 600 MG TABLET PO SCH ×2 (07:58→16:53)
[2021-10-29] MEDS: CHOLECALCIFEROL 1,000 UNIT TABLET PO SCH (07:58)
[2021-10-29] MEDS: RALOXIFENE HCL 60 MG TABLET PO SCH (07:58)
[2021-10-29] MEDS: ENOXAPARIN SODIUM 40 MG/0.4 ML DISP.SYRIN SQ SCH (08:01)
[2021-10-29 08:36] VITALS: BP 96/53
[2021-10-29 15:21] VITALS: BP 98/43
--- NOTE | 2021-10-29 18:16 | NUR ---
PATIENT REMAINED STABLE DURING THE SHIFT. NO DISTRESS AND PAIN IDENTIFIED. FREQUENT VISUAL CHECKS DONE. KEPT CALL LIGHT WITHIN REACH. ALL DUE MEDS GIVEN ORDERED. ALL NEEDS ATTENDED. SAFETY PRECAUTION MAINTAINED. WILL ENDORSE TO THE NEXT SHIFT FOR CONTINUITY OF CARE.
[2021-10-29] MEDS: levoFLOXacin 750 MG TABLET PO SCH (20:02)
[2021-10-29] MEDS: ATORVASTATIN 10 MG TABLET PO SCH (20:02)
[2021-10-29 20:09] VITALS: BP 112/62
--- NOTE | 2021-10-29 20:57 | NUR ---
Received pt resting in bed and watching tv. AAO x4. No acute distress noted. Denies pain/ discomfort. Due meds given as ordered. Assisted to the bathroom, using walker. Pt safely back in bed. Safety measures maintained. Call light and personal items within reach. Will continue to monitor.
[2021-10-30 04:12] VITALS: BP 100/58
[2021-10-30 07:30] VITALS: BP 107/61
[2021-10-30] MEDS: CALCIUM CARBONATE 600 MG TABLET PO SCH ×2 (08:50→16:46)
[2021-10-30] MEDS: FLUOXETINE HCL 20 MG CAPSULE PO SCH (08:50)
[2021-10-30] MEDS: CHOLECALCIFEROL 1,000 UNIT TABLET PO SCH (08:50)
[2021-10-30] MEDS: RALOXIFENE HCL 60 MG TABLET PO SCH (08:52)
[2021-10-30] MEDS: ENOXAPARIN SODIUM 40 MG/0.4 ML DISP.SYRIN SQ SCH (08:58)
[2021-10-30 15:45] VITALS: BP 112/52
[2021-10-30 20:00] VITALS: BP 115/67
[2021-10-30] MEDS: ATORVASTATIN 10 MG TABLET PO SCH (20:18)
--- NOTE | 2021-10-30 20:49 | NUR ---
Received pt resting in bed and watching tv. AAO x4. No acute distress noted. Denies pain/ discomfort. Assisted to the bathroom using walker, standby assist. Pt safely back in bed. Due med given as ordered. Safety measures maintained. Call light and personal items within reach. Will continue to monitor.
[2021-10-31 04:00] VITALS: BP 105/58
[2021-10-31 08:00] VITALS: BP 116/55
[2021-10-31] MEDS: CALCIUM CARBONATE 600 MG TABLET PO SCH ×2 (10:24→17:21)
[2021-10-31] MEDS: FLUOXETINE HCL 20 MG CAPSULE PO SCH (10:25)
[2021-10-31] MEDS: RALOXIFENE HCL 60 MG TABLET PO SCH (10:25)
[2021-10-31] MEDS: CHOLECALCIFEROL 1,000 UNIT TABLET PO SCH (10:25)
[2021-10-31] MEDS: ENOXAPARIN SODIUM 40 MG/0.4 ML DISP.SYRIN SQ SCH (10:32)
[2021-10-31 16:00] VITALS: BP 113/56
--- NOTE | 2021-10-31 20:00 | NUR ---
RECEIVED PATIENT IN HER BED WATCHING TV. SHE IS NOTED A/O X 4 SHE IS CALM AND PLEASANT UPON APPROACHED V/S STABLE, PT IN NO DISTRESS. CALL LIGHT AND PERSONAL ITEMS WITHIN REACHED. WILL CONTINUE TO MONITOR.
[2021-10-31 20:51] VITALS: BP 93/54
[2021-10-31] MEDS: ATORVASTATIN 10 MG TABLET PO SCH (21:25)
[2021-11-01 04:44] VITALS: BP 112/38
[2021-11-01 08:00] VITALS: BP 96/51
[2021-11-01] MEDS: FLUOXETINE HCL 20 MG CAPSULE PO SCH (08:37)
[2021-11-01] MEDS: CHOLECALCIFEROL 1,000 UNIT TABLET PO SCH (08:37)
[2021-11-01] MEDS: ENOXAPARIN SODIUM 40 MG/0.4 ML DISP.SYRIN SQ SCH (08:43)
[2021-11-01] MEDS: RALOXIFENE HCL 60 MG TABLET PO SCH (08:44)
[2021-11-01] MEDS: CALCIUM CARBONATE 600 MG TABLET PO SCH ×2 (08:44→16:59)
--- NOTE | 2021-11-01 11:57 | NUR ---
INTERDISCIPLINARY TEAM CONFERENCE
[2021-11-01 16:00] VITALS: BP 114/62
[2021-11-01 20:00] VITALS: BP 113/62
[2021-11-01] MEDS: ATORVASTATIN 10 MG TABLET PO SCH (20:21)
[2021-11-02 04:00] VITALS: BP 113/57
[2021-11-02 07:57] VITALS: BP 101/50
[2021-11-02] MEDS: CALCIUM CARBONATE 600 MG TABLET PO SCH ×2 (09:07→16:52)
[2021-11-02] MEDS: CHOLECALCIFEROL 1,000 UNIT TABLET PO SCH (09:08)
[2021-11-02] MEDS: RALOXIFENE HCL 60 MG TABLET PO SCH (09:09)
[2021-11-02] MEDS: FLUOXETINE HCL 20 MG CAPSULE PO SCH (09:11)
[2021-11-02] MEDS: ENOXAPARIN SODIUM 40 MG/0.4 ML DISP.SYRIN SQ SCH (09:13)
--- NOTE | 2021-11-02 18:14 | NUR ---
Patient remained stable during the shift. No distress identified. no pain noted. Patient stated she feels stronger compared from the time she was admitted. Compliant with meds. Safety measures maintained. Frequent checks done. Call light within reach. All due meds given. All needs attended. Will endorse to the next shift for continuity of care.
[2021-11-02 20:00] VITALS: BP_SYST 114; BP_SYST 127; BP_DIAS 55; BP_DIAS 66
[2021-11-02] MEDS: ATORVASTATIN 10 MG TABLET PO SCH (20:20)
[2021-11-03 04:00] VITALS: BP 120/57
[2021-11-03] MEDS: ACETAMINOPHEN 325 MG TABLET PO PRN (06:41)
[2021-11-03] MEDS: CALCIUM CARBONATE 600 MG TABLET PO SCH ×2 (09:28→17:43)
[2021-11-03] MEDS: RALOXIFENE HCL 60 MG TABLET PO SCH (09:28)
[2021-11-03] MEDS: FLUOXETINE HCL 20 MG CAPSULE PO SCH (09:29)
[2021-11-03] MEDS: CHOLECALCIFEROL 1,000 UNIT TABLET PO SCH (09:29)
[2021-11-03] MEDS: ENOXAPARIN SODIUM 40 MG/0.4 ML DISP.SYRIN SQ SCH (09:32)
[2021-11-03 15:21] VITALS: BP 116/64
[2021-11-03] MEDS: ATORVASTATIN 10 MG TABLET PO SCH (20:36)
[2021-11-03 21:37] VITALS: BP 97/52
[2021-11-04] MEDS: ACETAMINOPHEN 325 MG TABLET PO PRN ×2 (00:10→08:03)
[2021-11-04] MEDS: BACLOFEN 10 MG TABLET PO PRN ×2 (00:15→08:03)
--- NOTE | 2021-11-04 04:35 | NUR ---
Pt slept most of the night, easily arousal for care and able to make needs known. On room air, no respiratory distress noted medicated with Tylenol 650 mg and Baclofen 10 mg as order for C/O of right shoulder pain . BRP with walker and assistance. All needs attended. Call light placed within reach. Frequent visual checks done. Will endorse to next shift for continuity of care.
[2021-11-04 05:28] VITALS: BP 107/61
[2021-11-04 07:54] VITALS: BP 104/56
[2021-11-04] MEDS: CALCIUM CARBONATE 600 MG TABLET PO SCH ×2 (08:03→16:09)
[2021-11-04] MEDS: CHOLECALCIFEROL 1,000 UNIT TABLET PO SCH (08:03)
[2021-11-04] MEDS: FLUOXETINE HCL 20 MG CAPSULE PO SCH (08:03)
[2021-11-04] MEDS: RALOXIFENE HCL 60 MG TABLET PO SCH (08:04)
[2021-11-04] MEDS: ENOXAPARIN SODIUM 40 MG/0.4 ML DISP.SYRIN SQ SCH (08:15)
[2021-11-04] MEDS: IBUPROFEN 400 MG TABLET PO PRN (11:25)
[2021-11-04 15:10] VITALS: BP 100/54
--- NOTE | 2021-11-04 16:35 | NUR ---
patient was given ibuprofen as ordered for right shoulder pain, patient stated some relief from pain, continue to monitor, needs attended timely, no other events noted during shift
--- NOTE | 2021-11-04 19:30 | NUR ---
Received pt awake, alert and orientedx4. Pt in no acute distress. Safety and comfort provided. Will continue to monitor.
[2021-11-04 20:04] VITALS: BP 103/56
[2021-11-04] MEDS: ATORVASTATIN 10 MG TABLET PO SCH (20:31)
[2021-11-05 04:35] VITALS: BP 107/57
--- NOTE | 2021-11-05 06:29 | NUR ---
Pt slept comfortably. . Pt in no acute distress. Prescribed medication given and pt tolerated it well. Safety and comfort provided. Pt stable and vital signs within normal limit. All needs are met. Will endorse to incoming nurse for continuity of care.
[2021-11-05 07:54] VITALS: BP 102/55
[2021-11-05] MEDS: ENOXAPARIN SODIUM 40 MG/0.4 ML DISP.SYRIN SQ SCH (09:38)
[2021-11-05] MEDS: CHOLECALCIFEROL 1,000 UNIT TABLET PO SCH (09:38)
[2021-11-05] MEDS: CALCIUM CARBONATE 600 MG TABLET PO SCH ×2 (09:39→17:34)
[2021-11-05] MEDS: FLUOXETINE HCL 20 MG CAPSULE PO SCH (09:39)
[2021-11-05] MEDS: RALOXIFENE HCL 60 MG TABLET PO SCH (09:41)
[2021-11-05 16:00] VITALS: BP 106/55
--- NOTE | 2021-11-05 20:00 | NUR ---
NSG; Received pt sitting up in bed watching tv. alert and oriented x 4, on room air saturating at 98%, no signs of acute distress. No complaints or discomfort at this time. compliant with meds, ambulate to BR with fww and one person Assist. Call lights within reach, safety measures initiated. Belongs placed by bedside and within reach.
[2021-11-05 20:19] VITALS: BP 111/66
[2021-11-05] MEDS: ATORVASTATIN 10 MG TABLET PO SCH (21:00)
[2021-11-06] MEDS: IBUPROFEN 400 MG TABLET PO PRN (04:32)
--- NOTE | 2021-11-06 04:33 | NUR ---
patient c/o gen: pain. motrin 400 mg po given.
[2021-11-06 04:44] VITALS: BP 101/68
--- NOTE | 2021-11-06 05:34 | NUR ---
patient stated pain lavel is down. prn effective.
[2021-11-06] MEDS: CALCIUM CARBONATE 600 MG TABLET PO SCH ×2 (08:27→17:11)
[2021-11-06] MEDS: FLUOXETINE HCL 20 MG CAPSULE PO SCH (08:27)
[2021-11-06] MEDS: RALOXIFENE HCL 60 MG TABLET PO SCH (08:28)
[2021-11-06] MEDS: CHOLECALCIFEROL 1,000 UNIT TABLET PO SCH (08:28)
[2021-11-06] MEDS: ENOXAPARIN SODIUM 40 MG/0.4 ML DISP.SYRIN SQ SCH (08:43)
[2021-11-06 16:03] VITALS: BP 107/59
[2021-11-06] MEDS: ACETAMINOPHEN 325 MG TABLET PO PRN (17:13)
[2021-11-06] MEDS: ATORVASTATIN 10 MG TABLET PO SCH (20:08)
[2021-11-06 20:38] VITALS: BP 108/67
[2021-11-07 04:00] VITALS: BP 111/62
--- NOTE | 2021-11-07 06:56 | NUR ---
Pt slept throughout the night, easily arousable for care. She is alert and oriented x4, able to make needs known. On room air with no respiratory distress noted. No complaints of pain and discomfort made. Due medication given and tolerated well. BRP using FWW. All needs attended. Call light placed within reach. Frequent visual checks done. Will endorse to next shift for assistance.
[2021-11-07 08:00] VITALS: BP 100/58
[2021-11-07] MEDS: FLUOXETINE HCL 20 MG CAPSULE PO SCH (09:50)
[2021-11-07] MEDS: CHOLECALCIFEROL 1,000 UNIT TABLET PO SCH (09:51)
[2021-11-07] MEDS: CALCIUM CARBONATE 600 MG TABLET PO SCH (09:51)
[2021-11-07] MEDS: RALOXIFENE HCL 60 MG TABLET PO SCH (09:58)
[2021-11-07] MEDS: ENOXAPARIN SODIUM 40 MG/0.4 ML DISP.SYRIN SQ SCH (09:59)
--- NOTE | 2021-11-07 15:04 | NUR ---
Discharge order received from Dr. Mari, order carried out. Patient aware and agreeable.
--- NOTE | 2021-11-07 15:30 | NUR ---
Discharge instructions provided to the patient with verbalized understanding. Discharge papers signed by and given to the patient. Patient remains alert, oriented x 4, not in any form of distress, on room air. She denies any pain or discomfort. Vital signs stable. Assisted with her needs. All belongings well accounted. Patient picked up by [facility] ambulance, transferred via gurney.
[2021-11-07 16:00] VITALS: BP 109/62
== END 2021-11-07 15:30 | disposition home health service (06) | DRG 58 ==
PROVIDERS: ADMIT Physical Medicine & Rehabilitation Pain Medicine; ATTEND Physical Medicine & Rehabilitation Pain Medicine
DX: G35 Multiple sclerosis (principal); E43 Unspecified severe protein-calorie malnutrition; N39.0 Urinary tract infection, site not specified; G62.9 Polyneuropathy, unspecified; E78.5 Hyperlipidemia, unspecified; R26.81 Unsteadiness on feet; K21.9 Gastro-esophageal reflux disease without esophagitis; B96.20 Unspecified Escherichia coli [E. coli] as the cause of diseases classified elsewhere; M81.0 Age-related osteoporosis without current pathological fracture; Z85.3 Personal history of malignant neoplasm of breast; Z87.440 Personal history of urinary (tract) infections; Z88.0 Allergy status to penicillin; Z88.1 Allergy status to other antibiotic agents; K29.70 Gastritis, unspecified, without bleeding; R19.5 Other fecal abnormalities; I95.89 Other hypotension; R53.1 Weakness; Z92.3 Personal history of irradiation; D63.8 Anemia in other chronic diseases classified elsewhere; D69.6 Thrombocytopenia, unspecified; E55.9 Vitamin D deficiency, unspecified; F32.A Depression, unspecified; N32.81 Overactive bladder; Z82.49 Family history of ischemic heart disease and other diseases of the circulatory system
CPT/HCPCS: 36415; 70030-TC; 71045; 83735; 84100; 84443; 85025; 85610; 85730; 86140; 93005; 93307; 97161; A4663; J1650

== ENCOUNTER 2022-08-20 13:16 | Inpatient (IN) | payer MEDICARE ==
[~2022-08-20] VITALS: Ht 157.5 cm; Wt 66.2 kg
[~2022-08-20 13:16] MED LIST changes: +ACET-2154 PO; +ATOR10TA PO; +CHOL200026; +ENOX40DI SQ; -FING0.5C3 PO; +LEVO500T90 PO; +MELA5TAB PO; +ONDA4TAB11 PO; +RALO60TA PO
[2022-08-20] MEDS ORDERED: OCRE300V IV (13:37)
[2022-08-20] MEDS ORDERED: BACL10TA PO (13:37)
[2022-08-20] MEDS ORDERED: CRAN1CAP10 PO (13:37)
[2022-08-20] MEDS ORDERED: MV-M1TAB18 PO (13:37)
[2022-08-20] MEDS ORDERED: [UNRECOGNIZED DRUG - CODE] MC (13:37)
[2022-08-20] MEDS ORDERED: BIOT10005 PO (13:37)
[2022-08-20] MEDS ORDERED: ATOR20TA PO (13:37)
[2022-08-20] MEDS ORDERED: CALC1TAB3 PO (13:37)
[2022-08-20] MEDS ORDERED: FLUO40CA8 PO (13:37)
[2022-08-20 14:46] LABS: HEMATOCRIT 37.8 % (31.2-41.9); MEAN CORPUSCULAR HEMOGLOBIN 29.5 uug (24.7-32.8); PLATELET COUNT (AUTO) 155 K/uL (179-408)
[2022-08-20 14:48] LABS: CREATININE 0.6 mg/dL (0.6-1.3)
[2022-08-20 14:54] LABS: BILIRUBIN,TOTAL 0.9 mg/dL (0.2-1.0); TOTAL PROTEIN, SERUM 8.2 g/dL (6.4-8.2)
--- NOTE | 2022-08-20 16:17 | NUR ---
Urine sent to lab
[2022-08-20 16:31] LABS: *BILIRUBIN,URIN NEGATIVE (NEGATIVE); *BLOOD, URINE NEGATIVE (NEGATIVE); *CLARITY,URINE CLEAR (CLEAR); *COLOR,URINE YELLOW (YELLOW); *KETONES,URINE NEGATIVE (NEGATIVE); *UROBILINOGEN,URINE 0.2 E.U./dl (NORMAL); LEUKOCYTE ESTERASE ,URINE NEGATIVE (NEGATIVE); NITRITE, URINE NEGATIVE (NEGATIVE); UGLUCOSE NEGATIVE (NEGATIVE)
--- NOTE | 2022-08-20 19:10 | NUR ---
Report recieved from Ene WYMAN.
[2022-08-20 20:00] VITALS: BP 123/75
[2022-08-20] MEDS ORDERED: MELATONIN 3 MG TABLET PO PRN ×2 (20:00→22:45)
[2022-08-20] MEDS ORDERED: ACETAMINOPHEN 325 MG TABLET PO PRN (20:00)
[2022-08-20] MEDS ORDERED: HYDROCODONE/APAP 5-325MG TABLET PO PRN (20:15)
[2022-08-20] MEDS ORDERED: ONDANSETRON 4 MG/2 ML VIAL IV PRN (20:15)
--- NOTE | 2022-08-20 21:08 | NUR ---
Report given to Jerry WYMAN.
--- NOTE | 2022-08-20 21:30 | NUR ---
Admitted in Med surg floor under the care of Dr Nikhil Diallo. Patient alert oriented, no sob no chest pain, with left foot pain/4th metatarsal bone fracture. Patient is continent and incontinent of bladder, rendered good peter care. Patient has no complain of pain at this time, call light within reach.
[2022-08-20 21:35] VITALS: BP 123/75
--- NOTE | 2022-08-20 21:35 | NUR ---
Pt. admitted to MED SURG rm 303, under care of Dr. Diallo Belongs List completed Will RN aware of patient's arrival.
[2022-08-20] MEDS: ATORVASTATIN 10 MG TABLET PO SCH (21:59)
--- NOTE | 2022-08-20 22:27 | NUR ---
Notify Dr Nikhil Hope that patient has Melatonin 5mg po prn for sleep, and we don't have 5mg but 3mg or 2 tabs total 6mg, awaiting for response.
--- NOTE | 2022-08-20 22:34 | NUR ---
ordered melatonin 6mg po prn hs for sleep.
[2022-08-21 04:00] VITALS: BP 125/77
--- NOTE | 2022-08-21 05:15 | NUR ---
Patient slept most of the night, no sob no chest pain, no complain of pain at this time, kept bilateral feet elevated with pillow, no adverse changes noted, cont to monitor.
[2022-08-21 06:11] LABS: HEMATOCRIT 35.4 % (31.2-41.9); MEAN CORPUSCULAR HEMOGLOBIN 30.6 uug (24.7-32.8); MEAN CORPUSCULAR VOLUME 89.9 fL (75.5-95.3); PLATELET COUNT (AUTO) 142 K/uL (179-408)
[2022-08-21] MEDS: PANTOPRAZOLE SODIUM 40 MG TABLET.DR PO SCH (06:20)
[2022-08-21 06:37] LABS: CREATININE 0.7 mg/dL (0.6-1.3); MAGNESIUM 2.1 mg/dL (1.8-2.4); PHOSPHOROUS 4.1 mg/dL (2.5-4.9); POTASSIUM 4.1 mmol/L (3.5-5.1)
[2022-08-21] MEDS: CHOLECALCIFEROL 1,000 UNIT TABLET PO SCH (08:18)
[2022-08-21] MEDS: FLUOXETINE HCL 20 MG CAPSULE PO SCH (08:19)
[2022-08-21] MEDS: CALCIUM CARB/VITAMIN D 600-400 MG TABLET PO SCH (08:19)
[2022-08-21] MEDS: BACLOFEN 10 MG TABLET PO SCH ×2 (08:19→16:03)
[2022-08-21] MEDS: ENOXAPARIN SODIUM 40 MG/0.4 ML DISP.SYRIN SQ SCH (08:20)
[2022-08-21] MEDS ORDERED: CALCIUM CARBONATE 600 MG TABLET PO SCH (09:00)
[2022-08-21] MEDS ORDERED: levoFLOXacin 500 MG TABLET PO SCH (09:00)
[2022-08-21 11:42] VITALS: BP 105/55
[2022-08-21] MEDS ORDERED: DALF10TA2 PO (12:47)
[2022-08-21] MEDS ORDERED: MULT-225 PO (13:38)
[2022-08-21 15:47] VITALS: BP 107/43
[2022-08-21 20:00] VITALS: BP 107/58
[2022-08-21] MEDS: ATORVASTATIN 10 MG TABLET PO SCH (20:18)
[2022-08-22 04:00] VITALS: BP 101/77
[2022-08-22] MEDS: PANTOPRAZOLE SODIUM 40 MG TABLET.DR PO SCH (06:12)
[2022-08-22] MEDS: FLUOXETINE HCL 20 MG CAPSULE PO SCH (08:04)
[2022-08-22] MEDS: CALCIUM CARB/VITAMIN D 600-400 MG TABLET PO SCH (08:04)
[2022-08-22] MEDS: BACLOFEN 10 MG TABLET PO SCH ×2 (08:04→16:19)
[2022-08-22] MEDS: CHOLECALCIFEROL 1,000 UNIT TABLET PO SCH (08:04)
[2022-08-22] MEDS: ENOXAPARIN SODIUM 40 MG/0.4 ML DISP.SYRIN SQ SCH (08:05)
[2022-08-22 11:44] VITALS: BP 104/65
--- NOTE | 2022-08-22 16:20 | NUR ---
dc orders received noted and carried out.dc instruction and education given to the pt.pt is dc to aru via bed in stable condition
[2022-08-22] MEDS ORDERED: PANT40TA2 PO (17:45)
== END 2022-08-22 16:23 | DRG 563 ==
LOC: ER 13:16 → MEDSURG3 21:19
PROVIDERS: ATTEND Nurse Practitioner Family
DX: S92.345B Nondisplaced fracture of fourth metatarsal bone, left foot, initial encounter for open fracture (principal); W18.39XA Other fall on same level, initial encounter; Y92.039 Unspecified place in apartment as the place of occurrence of the external cause; G35 Multiple sclerosis; Z20.822 Contact with and (suspected) exposure to COVID-19; Z85.3 Personal history of malignant neoplasm of breast; Z87.440 Personal history of urinary (tract) infections
CPT/HCPCS: 36415; 73610; 73630; 83735; 84100; 84484; 85025; 93005; 97161; A4663; G0378; J1650

== ENCOUNTER 2022-08-22 17:02 | Inpatient (IN) | payer MEDICARE ==
[~2022-08-22] VITALS: Ht 157.5 cm; Wt 66.2 kg
[~2022-08-22 17:02] MED LIST changes: -ATOR10TA PO; +ATOR20TA PO; +BIOT10005 PO; +CALC1TAB3 PO; -CALC600T35 PO; -CHOL200026; +DALF10TA2 PO; -ENOX40DI SQ; -LEVO500T90 PO; +MULT-225 PO; +OCRE300V IV; -ONDA4TAB11 PO; -RISE150T PO
[2022-08-22] MEDS ORDERED: PANT40TA2 PO (17:45)
--- NOTE | 2022-08-22 17:55 | NUR ---
56 YEAR OLD ADMIT TO ROOM 303 FOR ARU VS ARE STABLE CALL LIGHT WITH IN REACH MD NOTIFIED THE ADMISSIONS ORDERS
[2022-08-22 18:10] VITALS: BP 104/62
[2022-08-22] MEDS ORDERED: ACETAMINOPHEN 325 MG TABLET PO PRN (18:15)
[2022-08-22 20:00] VITALS: BP 113/65
[2022-08-22] MEDS: ATORVASTATIN 20 MG TABLET PO SCH (20:09)
[2022-08-23 05:00] VITALS: BP 117/62
[2022-08-23] MEDS: PANTOPRAZOLE SODIUM 40 MG TABLET.DR PO SCH (06:05)
[2022-08-23 07:40] VITALS: BP 120/51
[2022-08-23] MEDS: CALCIUM CARB/VITAMIN D 600-400 MG TABLET PO SCH (08:02)
[2022-08-23] MEDS: BACLOFEN 10 MG TABLET PO SCH ×2 (08:02→16:11)
[2022-08-23] MEDS: MULTIVITAMINS,THERAPEUTIC TABLET PO SCH (08:02)
[2022-08-23] MEDS: FLUOXETINE HCL 20 MG CAPSULE PO SCH (08:02)
[2022-08-23] MEDS: CHOLECALCIFEROL 1,000 UNIT TABLET PO SCH (08:02)
[2022-08-23] MEDS: HYDROCODONE/APAP 5-325MG TABLET PO PRN (08:38)
[2022-08-23] MEDS ORDERED: BIOTIN 10000 MCG PO SCH (09:00)
[2022-08-23] MEDS ORDERED: DALFAMPRIDINE 10 MG PO SCH (09:00)
[2022-08-23] MEDS: RALOXIFENE HCL 60 MG TABLET PO SCH (10:01)
[2022-08-23] MEDS: ATORVASTATIN 20 MG TABLET PO SCH (20:17)
[2022-08-23 21:37] VITALS: BP 119/61
--- NOTE | 2022-08-24 02:00 | NUR ---
Patient in bed at this time, asleep in bed, quiet, no sob, no c/o pain noted, AAox3, BRP with fww, call light within reach, will continue to monitor.
[2022-08-24 04:11] VITALS: BP 95/48
[2022-08-24] MEDS: PANTOPRAZOLE SODIUM 40 MG TABLET.DR PO SCH (06:06)
[2022-08-24 07:50] VITALS: BP 100/62
[2022-08-24] MEDS: CALCIUM CARB/VITAMIN D 600-400 MG TABLET PO SCH (08:10)
[2022-08-24] MEDS: FLUOXETINE HCL 20 MG CAPSULE PO SCH (08:10)
[2022-08-24] MEDS: MULTIVITAMINS,THERAPEUTIC TABLET PO SCH (08:10)
[2022-08-24] MEDS: RALOXIFENE HCL 60 MG TABLET PO SCH (08:10)
[2022-08-24] MEDS: CHOLECALCIFEROL 1,000 UNIT TABLET PO SCH (08:10)
[2022-08-24] MEDS: BACLOFEN 10 MG TABLET PO SCH ×2 (08:10→16:02)
[2022-08-24] MEDS: HYDROCODONE/APAP 5-325MG TABLET PO PRN (08:10)
[2022-08-24 15:44] VITALS: BP 111/55
[2022-08-24] MEDS: ATORVASTATIN 20 MG TABLET PO SCH (20:08)
[2022-08-24 20:47] VITALS: BP 114/62
[2022-08-25 04:36] VITALS: BP 110/55
[2022-08-25] MEDS: PANTOPRAZOLE SODIUM 40 MG TABLET.DR PO SCH (06:01)
[2022-08-25 07:30] VITALS: BP 98/38
[2022-08-25] MEDS: CHOLECALCIFEROL 1,000 UNIT TABLET PO SCH (08:33)
[2022-08-25] MEDS: FLUOXETINE HCL 20 MG CAPSULE PO SCH (08:34)
[2022-08-25] MEDS: MULTIVITAMINS,THERAPEUTIC TABLET PO SCH (08:34)
[2022-08-25] MEDS: CALCIUM CARB/VITAMIN D 600-400 MG TABLET PO SCH (08:35)
[2022-08-25] MEDS: RALOXIFENE HCL 60 MG TABLET PO SCH (08:39)
[2022-08-25] MEDS: BACLOFEN 10 MG TABLET PO SCH ×2 (08:39→16:44)
[2022-08-25] MEDS: HYDROCODONE/APAP 5-325MG TABLET PO PRN (10:43)
[2022-08-25 15:38] VITALS: BP 120/62
--- NOTE | 2022-08-25 15:46 | NUR ---
Patient is 56 years old female. She was found in bed awake, lying in supine position with HOB 45 degress angle. she is comfortable at this time. denied pain when asked. calm and relax at this time. patient is A&Ox4, breathing normal on room air. Dx: general weakness, L4 Metatarsal FX L foot MS. Allergies: Penicillins, Cephalexin. She is on regular diet and is full code. pas history are Fractures, Breast cancer, Post menopausal. MS, L 4th metatarsal bone FX.She was able to walk with PT and some work was done as well with OT. Bruises noted on left foot and edema. She is comfortable at this time.
[2022-08-25 20:33] VITALS: BP 116/69
[2022-08-25] MEDS: MELATONIN 3 MG TABLET PO PRN (20:51)
[2022-08-25] MEDS: ATORVASTATIN 20 MG TABLET PO SCH (20:51)
[2022-08-26 04:25] VITALS: BP 109/51
[2022-08-26] MEDS: PANTOPRAZOLE SODIUM 40 MG TABLET.DR PO SCH (06:06)
[2022-08-26 07:54] VITALS: BP 103/51
[2022-08-26] MEDS: FLUOXETINE HCL 20 MG CAPSULE PO SCH (08:00)
[2022-08-26] MEDS: HYDROCODONE/APAP 5-325MG TABLET PO PRN (08:00)
[2022-08-26] MEDS: BACLOFEN 10 MG TABLET PO SCH ×2 (08:00→16:21)
[2022-08-26] MEDS: MULTIVITAMINS,THERAPEUTIC TABLET PO SCH (08:00)
[2022-08-26] MEDS: CALCIUM CARB/VITAMIN D 600-400 MG TABLET PO SCH (08:00)
[2022-08-26] MEDS: CHOLECALCIFEROL 1,000 UNIT TABLET PO SCH (08:00)
[2022-08-26] MEDS: ENSURE ENLIVE (VAN) 240 ML LIQUID PO SCH (08:01)
[2022-08-26] MEDS: RALOXIFENE HCL 60 MG TABLET PO SCH (08:12)
[2022-08-26 16:01] VITALS: BP 120/69
[2022-08-26 20:12] VITALS: BP 100/55
[2022-08-26] MEDS: ATORVASTATIN 20 MG TABLET PO SCH (20:19)
[2022-08-27 04:24] VITALS: BP 111/58
[2022-08-27] MEDS: PANTOPRAZOLE SODIUM 40 MG TABLET.DR PO SCH (06:03)
--- NOTE | 2022-08-27 06:56 | NUR ---
patient received in bed, AAOx4, no sob, no c/o pain noted, continue to monitor.
[2022-08-27 08:01] VITALS: BP 110/63
[2022-08-27] MEDS: MULTIVITAMINS,THERAPEUTIC TABLET PO SCH (08:07)
[2022-08-27] MEDS: FLUOXETINE HCL 20 MG CAPSULE PO SCH (08:07)
[2022-08-27] MEDS: CALCIUM CARB/VITAMIN D 600-400 MG TABLET PO SCH (08:07)
[2022-08-27] MEDS: HYDROCODONE/APAP 5-325MG TABLET PO PRN (08:07)
[2022-08-27] MEDS: RALOXIFENE HCL 60 MG TABLET PO SCH (08:07)
[2022-08-27] MEDS: CHOLECALCIFEROL 1,000 UNIT TABLET PO SCH (08:08)
[2022-08-27] MEDS: ENSURE ENLIVE (VAN) 240 ML LIQUID PO SCH (08:08)
[2022-08-27] MEDS: BACLOFEN 10 MG TABLET PO SCH ×2 (08:08→16:19)
[2022-08-27 16:32] VITALS: BP 117/76
[2022-08-27 16:34] VITALS: BP 107/68
[2022-08-27] MEDS: ATORVASTATIN 20 MG TABLET PO SCH (20:01)
[2022-08-27 20:45] VITALS: BP 122/42
[2022-08-28 04:24] VITALS: BP 107/57
[2022-08-28] MEDS: PANTOPRAZOLE SODIUM 40 MG TABLET.DR PO SCH (06:00)
[2022-08-28] MEDS: MULTIVITAMINS,THERAPEUTIC TABLET PO SCH (09:00)
[2022-08-28] MEDS: RALOXIFENE HCL 60 MG TABLET PO SCH (09:00)
[2022-08-28] MEDS: FLUOXETINE HCL 20 MG CAPSULE PO SCH (09:00)
[2022-08-28] MEDS: ENSURE ENLIVE (VAN) 240 ML LIQUID PO SCH (09:00)
[2022-08-28] MEDS: CALCIUM CARB/VITAMIN D 600-400 MG TABLET PO SCH (09:01)
[2022-08-28] MEDS: CHOLECALCIFEROL 1,000 UNIT TABLET PO SCH (09:01)
[2022-08-28] MEDS: BACLOFEN 10 MG TABLET PO SCH ×2 (09:01→17:24)
[2022-08-28 20:00] VITALS: BP 114/49
[2022-08-28] MEDS: ATORVASTATIN 20 MG TABLET PO SCH (21:25)
[2022-08-29 04:00] VITALS: BP 119/52
--- NOTE | 2022-08-29 04:45 | NUR ---
Patient alert oriented, no complain of pain, no sob no chest pain. Patient still have purple bruise on her left foot. Patient continent of bowel and bladder, assisted with toileting, patient cooperative with care, cont to monitor.
[2022-08-29] MEDS: PANTOPRAZOLE SODIUM 40 MG TABLET.DR PO SCH (06:12)
[2022-08-29 06:44] LABS: HEMATOCRIT 33.7 % (31.2-41.9); MEAN CORPUSCULAR HEMOGLOBIN 30.9 uug (24.7-32.8); MEAN CORPUSCULAR VOLUME 89.6 fL (75.5-95.3); PLATELET COUNT (AUTO) 170 K/uL (179-408)
[2022-08-29 07:31] LABS: BILIRUBIN,TOTAL 0.5 mg/dL (0.2-1.0); CREATININE 0.6 mg/dL (0.6-1.3); MAGNESIUM 1.9 mg/dL (1.8-2.4); PHOSPHOROUS 4.3 mg/dL (2.5-4.9); TOTAL PROTEIN, SERUM 7.1 g/dL (6.4-8.2)
[2022-08-29 08:00] VITALS: BP 106/69
[2022-08-29] MEDS: MULTIVITAMINS,THERAPEUTIC TABLET PO SCH (08:22)
[2022-08-29] MEDS: CALCIUM CARB/VITAMIN D 600-400 MG TABLET PO SCH (08:22)
[2022-08-29] MEDS: RALOXIFENE HCL 60 MG TABLET PO SCH (08:23)
[2022-08-29] MEDS: CHOLECALCIFEROL 1,000 UNIT TABLET PO SCH (08:23)
[2022-08-29] MEDS: FLUOXETINE HCL 20 MG CAPSULE PO SCH (08:23)
[2022-08-29] MEDS: ENSURE ENLIVE (VAN) 240 ML LIQUID PO SCH (08:24)
[2022-08-29] MEDS: BACLOFEN 10 MG TABLET PO SCH ×2 (08:26→17:02)
--- NOTE | 2022-08-29 15:32 | NUR ---
INTERDISCIPLINARY TEAM CONFERENCE
[2022-08-29 16:04] VITALS: BP 114/59
[2022-08-29 20:00] VITALS: BP 104/67
[2022-08-29] MEDS: ATORVASTATIN 20 MG TABLET PO SCH (21:05)
[2022-08-30 04:00] VITALS: BP 95/46
[2022-08-30] MEDS: PANTOPRAZOLE SODIUM 40 MG TABLET.DR PO SCH (06:07)
[2022-08-30] MEDS: CHOLECALCIFEROL 1,000 UNIT TABLET PO SCH (08:04)
[2022-08-30] MEDS: BACLOFEN 10 MG TABLET PO SCH ×2 (08:05→16:08)
[2022-08-30] MEDS: CALCIUM CARB/VITAMIN D 600-400 MG TABLET PO SCH (08:05)
[2022-08-30] MEDS: FLUOXETINE HCL 20 MG CAPSULE PO SCH (08:05)
[2022-08-30] MEDS: MULTIVITAMINS,THERAPEUTIC TABLET PO SCH (08:05)
[2022-08-30] MEDS: RALOXIFENE HCL 60 MG TABLET PO SCH (08:05)
[2022-08-30] MEDS: ENSURE ENLIVE (VAN) 240 ML LIQUID PO SCH (08:05)
[2022-08-30 15:19] VITALS: BP 102/73
[2022-08-30 20:00] VITALS: BP 106/53
[2022-08-30] MEDS: ATORVASTATIN 20 MG TABLET PO SCH (21:47)
[2022-08-30] MEDS: MELATONIN 3 MG TABLET PO PRN (21:47)
[2022-08-31 04:00] VITALS: BP 114/51
[2022-08-31] MEDS: PANTOPRAZOLE SODIUM 40 MG TABLET.DR PO SCH (06:16)
[2022-08-31] MEDS: MULTIVITAMINS,THERAPEUTIC TABLET PO SCH (08:10)
[2022-08-31] MEDS: RALOXIFENE HCL 60 MG TABLET PO SCH (08:10)
[2022-08-31] MEDS: CALCIUM CARB/VITAMIN D 600-400 MG TABLET PO SCH (08:10)
[2022-08-31] MEDS: CHOLECALCIFEROL 1,000 UNIT TABLET PO SCH (08:10)
[2022-08-31] MEDS: BACLOFEN 10 MG TABLET PO SCH ×2 (08:10→16:12)
[2022-08-31] MEDS: FLUOXETINE HCL 20 MG CAPSULE PO SCH (08:10)
[2022-08-31] MEDS: ENSURE ENLIVE (VAN) 240 ML LIQUID PO SCH (08:10)
[2022-08-31] MEDS: HYDROCODONE/APAP 5-325MG TABLET PO PRN (09:27)
--- NOTE | 2022-08-31 15:28 | NUR ---
INDIVIDUALIZED PLAN OF CARE THIS WAS OBSERVED AND DONE ON 08/25/22
[2022-08-31] MEDS: ATORVASTATIN 20 MG TABLET PO SCH (20:23)
[2022-08-31] MEDS: MELATONIN 3 MG TABLET PO PRN (20:24)
[2022-08-31 20:27] VITALS: BP 106/55
[2022-09-01 04:05] VITALS: BP 98/50
[2022-09-01] MEDS: PANTOPRAZOLE SODIUM 40 MG TABLET.DR PO SCH (06:30)
[2022-09-01 07:31] VITALS: BP 120/48
[2022-09-01] MEDS: FLUOXETINE HCL 20 MG CAPSULE PO SCH (08:03)
[2022-09-01] MEDS: CHOLECALCIFEROL 1,000 UNIT TABLET PO SCH (08:03)
[2022-09-01] MEDS: HYDROCODONE/APAP 5-325MG TABLET PO PRN (08:03)
[2022-09-01] MEDS: MULTIVITAMINS,THERAPEUTIC TABLET PO SCH (08:03)
[2022-09-01] MEDS: CALCIUM CARB/VITAMIN D 600-400 MG TABLET PO SCH (08:03)
[2022-09-01] MEDS: BACLOFEN 10 MG TABLET PO SCH ×2 (08:04→16:01)
[2022-09-01] MEDS: RALOXIFENE HCL 60 MG TABLET PO SCH (08:04)
[2022-09-01] MEDS: ENSURE ENLIVE (VAN) 240 ML LIQUID PO SCH (08:04)
[2022-09-01 15:19] VITALS: BP 122/70
[2022-09-01] MEDS: MELATONIN 3 MG TABLET PO PRN (21:01)
[2022-09-01] MEDS: ATORVASTATIN 20 MG TABLET PO SCH (21:01)
[2022-09-02 04:11] VITALS: BP 110/53
[2022-09-02] MEDS: PANTOPRAZOLE SODIUM 40 MG TABLET.DR PO SCH (06:20)
[2022-09-02 07:30] VITALS: BP 100/56
[2022-09-02] MEDS: FLUOXETINE HCL 20 MG CAPSULE PO SCH (08:05)
[2022-09-02] MEDS: CHOLECALCIFEROL 1,000 UNIT TABLET PO SCH (08:05)
[2022-09-02] MEDS: RALOXIFENE HCL 60 MG TABLET PO SCH (08:06)
[2022-09-02] MEDS: HYDROCODONE/APAP 5-325MG TABLET PO PRN (08:06)
[2022-09-02] MEDS: MULTIVITAMINS,THERAPEUTIC TABLET PO SCH (08:06)
[2022-09-02] MEDS: CALCIUM CARB/VITAMIN D 600-400 MG TABLET PO SCH (08:06)
[2022-09-02] MEDS: ENSURE ENLIVE (VAN) 240 ML LIQUID PO SCH (08:06)
[2022-09-02] MEDS: BACLOFEN 10 MG TABLET PO SCH ×2 (08:06→16:23)
[2022-09-02 16:00] VITALS: BP 104/59
[2022-09-02] MEDS ORDERED: IBUPROFEN 400 MG TABLET PO PRN (19:30)
[2022-09-02 20:00] VITALS: BP 106/42
[2022-09-02] MEDS: ATORVASTATIN 20 MG TABLET PO SCH (20:11)
[2022-09-02] MEDS: MELATONIN 3 MG TABLET PO PRN (20:24)
[2022-09-03 04:00] VITALS: BP 101/49
[2022-09-03] MEDS: PANTOPRAZOLE SODIUM 40 MG TABLET.DR PO SCH (06:12)
[2022-09-03 08:08] VITALS: BP 96/43
[2022-09-03] MEDS: BACLOFEN 10 MG TABLET PO SCH (08:12)
[2022-09-03] MEDS: HYDROCODONE/APAP 5-325MG TABLET PO PRN (08:13)
[2022-09-03] MEDS: CHOLECALCIFEROL 1,000 UNIT TABLET PO SCH (08:13)
[2022-09-03] MEDS: CALCIUM CARB/VITAMIN D 600-400 MG TABLET PO SCH (08:13)
[2022-09-03] MEDS: MULTIVITAMINS,THERAPEUTIC TABLET PO SCH (08:13)
[2022-09-03] MEDS: FLUOXETINE HCL 20 MG CAPSULE PO SCH (08:13)
[2022-09-03] MEDS: ENSURE ENLIVE (VAN) 240 ML LIQUID PO SCH (08:13)
[2022-09-03] MEDS: RALOXIFENE HCL 60 MG TABLET PO SCH (08:14)
--- NOTE | 2022-09-03 14:18 | NUR ---
DC ORDERS RECEIVED NOTED AND CARRIED OUT,DC INSTRUCTION AND EDUCATION GIVEN TO THE PT ,PT SAID SHE WILL FOLLOW UP WITH THE PCP PT LEFT THE FACILITY VIA AMBULANCES IN STABLE CONDITION
== END 2022-09-03 14:37 | disposition home health service (06) | DRG 561 ==
PROVIDERS: ADMIT Physical Medicine & Rehabilitation Pain Medicine; ATTEND Physical Medicine & Rehabilitation Pain Medicine
DX: S92.342D Displaced fracture of fourth metatarsal bone, left foot, subsequent encounter for fracture with routine healing (principal); R53.1 Weakness; G35 Multiple sclerosis; W19.XXXD Unspecified fall, subsequent encounter; Z85.3 Personal history of malignant neoplasm of breast; R26.81 Unsteadiness on feet; M81.0 Age-related osteoporosis without current pathological fracture; W18.30XD Fall on same level, unspecified, subsequent encounter; Z88.1 Allergy status to other antibiotic agents; Z88.0 Allergy status to penicillin; D69.6 Thrombocytopenia, unspecified
CPT/HCPCS: 36415; 82652; 83735; 84100; 85025; 97535-GO-CO

== ENCOUNTER 2022-10-04 15:06 | Inpatient (IN) | payer MEDICARE ==
[~2022-10-04] VITALS: Ht 157.5 cm; Wt 68.0 kg
[2022-10-04] MEDS: MELATONIN 3 MG TABLET PO SCH
[~2022-10-04 15:06] MED LIST changes: +PANT40TA2 PO
[2022-10-04] MEDS ORDERED: IV NORMAL SALINE 1000 ML BAG IV ONE (15:45)
[2022-10-04 16:04] LABS: HEMATOCRIT 39.2 % (31.2-41.9); MEAN CORPUSCULAR HEMOGLOBIN 29.6 uug (24.7-32.8); MEAN CORPUSCULAR VOLUME 90.7 fL (75.5-95.3); PLATELET COUNT (AUTO) 186 K/uL (179-408)
[2022-10-04 16:18] LABS: CREATININE 0.7 mg/dL (0.6-1.3); POTASSIUM 4.5 mmol/L (3.5-5.1)
[2022-10-04 16:24] LABS: BILIRUBIN,DIRECT 0.2 mg/dL (0.0-0.2); BILIRUBIN,TOTAL 1.1 mg/dL (0.2-1.0); TOTAL PROTEIN, SERUM 8.1 g/dL (6.4-8.2)
--- NOTE | 2022-10-04 18:55 | NUR ---
Received report from Orquidea WYMAN.
[2022-10-04] MEDS ORDERED: ONDANSETRON 4 MG/2 ML VIAL IV PRN (20:45)
[2022-10-04] MEDS ORDERED: ACETAMINOPHEN 325 MG TABLET PO PRN (20:45)
[2022-10-04] MEDS ORDERED: Medication Not On Formulary EA (Melatonin 5 MG) PO PRN (20:45)
[2022-10-04] MEDS: ATORVASTATIN 10 MG TABLET PO SCH (21:23)
--- NOTE | 2022-10-04 21:35 | NUR ---
Yessenia cleaning performed. Diaper fully saturated in urine.
--- NOTE | 2022-10-04 23:19 | NUR ---
Report given to Jonelle WYMAN.
[2022-10-04 23:30] VITALS: BP 112/51
--- NOTE | 2022-10-04 23:35 | NUR ---
Pt. admitted to M/S 321, under care of Dr. Freitas Belongs List completed Jonelle RN aware of patient's arrival to unit.
[2022-10-05 04:00] VITALS: BP 105/33
[2022-10-05 06:35] LABS: HEMATOCRIT 33.8 % (31.2-41.9); MEAN CORPUSCULAR VOLUME 89.7 fL (75.5-95.3); PLATELET COUNT (AUTO) 151 K/uL (179-408)
[2022-10-05] MEDS: PANTOPRAZOLE SODIUM 40 MG TABLET.DR PO SCH (06:37)
[2022-10-05 06:58] LABS: BILIRUBIN,TOTAL 0.9 mg/dL (0.2-1.0); CREATININE 0.7 mg/dL (0.6-1.3); MAGNESIUM 1.9 mg/dL (1.8-2.4); PHOSPHOROUS 3.7 mg/dL (2.5-4.9); POTASSIUM 3.9 mmol/L (3.5-5.1); TOTAL PROTEIN, SERUM 6.7 g/dL (6.4-8.2)
[2022-10-05] MEDS: MULTIVITAMINS,THERAPEUTIC TABLET PO SCH (08:59)
[2022-10-05] MEDS: CHOLECALCIFEROL 1,000 UNIT TABLET PO SCH (08:59)
[2022-10-05] MEDS: BACLOFEN 10 MG TABLET PO SCH ×2 (08:59→20:11)
[2022-10-05] MEDS: FLUOXETINE HCL 20 MG CAPSULE PO SCH (08:59)
[2022-10-05] MEDS: CALCIUM CARB/VITAMIN D 600-400 MG TABLET PO SCH (08:59)
[2022-10-05] MEDS ORDERED: DALFAMPRIDINE 10 MG PO SCH (09:00)
[2022-10-05] MEDS ORDERED: Medication Not On Formulary EA (Fluoxetine Hcl 40 MG) PO SCH (09:00)
[2022-10-05] MEDS ORDERED: Medication Not On Formulary EA (Multivitamins (Multiple Vitamin) 1 EACH) PO SCH (09:00)
[2022-10-05] MEDS ORDERED: CALCIUM CARBONATE PO SCH (09:00)
[2022-10-05] MEDS ORDERED: [UNRECOGNIZED DRUG - OTHER] PO SCH (09:00)
[2022-10-05] MEDS ORDERED: BIOTIN 10000 MCG PO SCH (09:00)
[2022-10-05] MEDS ORDERED: VITAMIN D3 PO SCH (09:00)
--- NOTE | 2022-10-05 12:45 | NUR ---
Report received from prior nurse. Noted left foot bruising and swelling with pitted edema +2. Pt able to feel sensation on gene feet and wiggle toes. Ice Applied on left foot. Left foot elevated.
[2022-10-05] MEDS: RALOXIFENE HCL 60 MG TABLET PO SCH (16:30)
--- NOTE | 2022-10-05 17:01 | NUR ---
Pt is in no acute distress. Left foot x ray negative. Continue to apply ice on left foot.
[2022-10-05 20:00] VITALS: BP 101/46
[2022-10-05] MEDS: ATORVASTATIN 10 MG TABLET PO SCH (20:11)
[2022-10-05] MEDS: MELATONIN 3 MG TABLET PO SCH (20:49)
[2022-10-06] MEDS: PANTOPRAZOLE SODIUM 40 MG TABLET.DR PO SCH (06:10)
[2022-10-06] MEDS: CALCIUM CARB/VITAMIN D 600-400 MG TABLET PO SCH (08:27)
[2022-10-06] MEDS: MULTIVITAMINS,THERAPEUTIC TABLET PO SCH (08:27)
[2022-10-06] MEDS: CHOLECALCIFEROL 1,000 UNIT TABLET PO SCH (08:27)
[2022-10-06] MEDS: BACLOFEN 10 MG TABLET PO SCH (08:27)
[2022-10-06] MEDS: RALOXIFENE HCL 60 MG TABLET PO SCH (08:27)
[2022-10-06] MEDS: FLUOXETINE HCL 20 MG CAPSULE PO SCH (08:27)
[2022-10-06 11:39] VITALS: BP 95/52
--- NOTE | 2022-10-06 14:53 | NUR ---
patient agreed to stay with ARU, for further care. patient is alert, oriented x4, no sob, respirations are even nonlabored, skin warm and dry to touch, no skin issues, belongings are accounted, signed, no distress noted.
== END 2022-10-06 14:55 | DRG 60 ==
LOC: ER 15:06 → TELE3 18:10 → MEDSURG3 23:07
PROVIDERS: ADMIT Nurse Practitioner Acute Care; ATTEND Nurse Practitioner Acute Care
DX: G35 Multiple sclerosis (principal); R53.1 Weakness; E78.5 Hyperlipidemia, unspecified; Z86.16 Personal history of COVID-19; Z85.3 Personal history of malignant neoplasm of breast; Z20.822 Contact with and (suspected) exposure to COVID-19; Z74.09 Other reduced mobility; D69.6 Thrombocytopenia, unspecified; R26.81 Unsteadiness on feet; K21.9 Gastro-esophageal reflux disease without esophagitis; S90.112A Contusion of left great toe without damage to nail, initial encounter; W19.XXXA Unspecified fall, initial encounter; Y93.9 Activity, unspecified; Y92.009 Unspecified place in unspecified non-institutional (private) residence as the place of occurrence of the external cause
CPT/HCPCS: 36415; 73610; 83735; 83921; 84100; 85025; 93005; G0378; J7040

== ENCOUNTER 2022-10-06 15:15 | Inpatient (IN) | payer MEDICARE ==
[~2022-10-06] VITALS: Ht 157.5 cm; Wt 68.0 kg
[~2022-10-06 15:15] MED LIST changes: -PANT40TA2 PO
[2022-10-06 15:24] VITALS: BP 123/63
[2022-10-06] MEDS ORDERED: REMEDY ESSENTIAL ZINC PASTE 113 GM TOP PRN (16:00)
--- NOTE | 2022-10-06 18:41 | NUR ---
Pt. admitted to [facility] @1630. Pt. is alert and oriented x4, and speaks Icelandic. Pt. has a hx of Hyperlipidemia, GERD, Breast Cancer, lumpectomy, depression, multiple sclerosis, left 4th metatarsal bone fx, multiple falls, and weakness post covid-vaccine. Skin intact. Pt. tolerates PO medications. Pt. tolerates diet plan. No acute distress noted. Pt. denies pain. Pt. had one bowel movement today. Pt. wheelchair to restroom assist. Hourly rounding done. Fall precautions in place; bed in lowest position & bed alarm on. All needs met at this time. With endorse to Rehabilitation Coordinator, RN.
[2022-10-06] MEDS ORDERED: ACETAMINOPHEN 325 MG TABLET PO PRN (19:00)
[2022-10-06] MEDS ORDERED: Medication Not On Formulary EA (Melatonin 5 MG) PO PRN (19:00)
[2022-10-06 20:19] VITALS: BP 147/57
[2022-10-06] MEDS: ATORVASTATIN 20 MG TABLET PO SCH (20:46)
[2022-10-06] MEDS: MELATONIN 3 MG TABLET PO PRN (23:12)
[2022-10-07 04:55] VITALS: BP 100/50
[2022-10-07 08:51] VITALS: BP 112/54
[2022-10-07] MEDS: CHOLECALCIFEROL 1,000 UNIT TABLET PO SCH (08:57)
[2022-10-07] MEDS: CALCIUM CARB/VITAMIN D 600-400 MG TABLET PO SCH (08:57)
[2022-10-07] MEDS: MULTIVITAMINS,THERAPEUTIC TABLET PO SCH (08:57)
[2022-10-07] MEDS: BACLOFEN 10 MG TABLET PO SCH ×2 (08:58→17:08)
[2022-10-07] MEDS: FLUOXETINE HCL 20 MG CAPSULE PO SCH (08:58)
[2022-10-07] MEDS: RALOXIFENE HCL 60 MG TABLET PO SCH (08:58)
[2022-10-07] MEDS ORDERED: BIOTIN 10000 MCG PO SCH (09:00)
[2022-10-07] MEDS ORDERED: Medication Not On Formulary EA (Multivitamins (Multiple Vitamin) 1 EACH) PO SCH (09:00)
[2022-10-07] MEDS ORDERED: [UNRECOGNIZED DRUG - OTHER] PO SCH (09:00)
[2022-10-07] MEDS ORDERED: Medication Not On Formulary EA (Fluoxetine Hcl 40 MG) PO SCH (09:00)
[2022-10-07] MEDS ORDERED: VITAMIN D3 PO SCH (09:00)
[2022-10-07] MEDS ORDERED: CALCIUM CARBONATE PO SCH (09:00)
--- NOTE | 2022-10-07 09:00 | NUR ---
Left antecubital peripheral IV d/c'd per patient's request. No signs or symptoms of infection. Will continue to monitor.
[2022-10-07 16:36] VITALS: BP 101/53
[2022-10-07 20:00] VITALS: BP 111/49
[2022-10-07] MEDS: MELATONIN 3 MG TABLET PO PRN (23:09)
[2022-10-07] MEDS: ATORVASTATIN 20 MG TABLET PO SCH (23:10)
[2022-10-08 04:00] VITALS: BP 110/50
[2022-10-08 07:34] VITALS: BP 104/51
[2022-10-08] MEDS: CALCIUM CARB/VITAMIN D 600-400 MG TABLET PO SCH (08:36)
[2022-10-08] MEDS: FLUOXETINE HCL 20 MG CAPSULE PO SCH (08:36)
[2022-10-08] MEDS: CHOLECALCIFEROL 1,000 UNIT TABLET PO SCH (08:37)
[2022-10-08] MEDS: MULTIVITAMINS,THERAPEUTIC TABLET PO SCH (08:37)
[2022-10-08] MEDS: BACLOFEN 10 MG TABLET PO SCH ×2 (08:37→16:08)
[2022-10-08] MEDS: RALOXIFENE HCL 60 MG TABLET PO SCH (08:38)
[2022-10-08 15:52] VITALS: BP 96/42
--- NOTE | 2022-10-08 16:08 | NUR ---
spoke to patient yesterday and today to bring home meds, patient stated my sister is the one can bring it but right now she is not available. patient stated she is going to try to ask her sister again.
--- NOTE | 2022-10-08 18:19 | NUR ---
no events noted
[2022-10-08 20:00] VITALS: BP 107/61
[2022-10-08] MEDS: ATORVASTATIN 20 MG TABLET PO SCH (21:27)
[2022-10-08] MEDS: MELATONIN 3 MG TABLET PO PRN (21:28)
[2022-10-09 04:00] VITALS: BP 110/72
[2022-10-09 07:41] VITALS: BP 101/46
[2022-10-09] MEDS: CALCIUM CARB/VITAMIN D 600-400 MG TABLET PO SCH (08:32)
[2022-10-09] MEDS: FLUOXETINE HCL 20 MG CAPSULE PO SCH (08:32)
[2022-10-09] MEDS: CHOLECALCIFEROL 1,000 UNIT TABLET PO SCH (08:32)
[2022-10-09] MEDS: BACLOFEN 10 MG TABLET PO SCH ×2 (08:33→17:04)
[2022-10-09] MEDS: MULTIVITAMINS,THERAPEUTIC TABLET PO SCH (08:33)
[2022-10-09] MEDS: RALOXIFENE HCL 60 MG TABLET PO SCH (08:33)
--- NOTE | 2022-10-09 10:17 | NUR ---
INDIVIDUALIZED PLAN OF CARE
[2022-10-09] MEDS: ENSURE ENLIVE (VAN) 240 ML LIQUID PO SCH (13:38)
[2022-10-09 15:02] VITALS: BP 109/43
--- NOTE | 2022-10-09 19:25 | NUR ---
Pt. is alert and oriented x4, and speaks Lao. Pt. participates in physical and occupational therapy per MD order. Pt. tolerates PO medications as ordered. Pt. is on Regular Diet and tolerates well. Pt. voids adequately and had one bowel movement. Patient has bathroom privileges, assist to restroom with staff. Pt. states: "My medications will be coming in tomorrow, after that, my sister will bring it in for me." RN will relay to pharmacy. Patient denies pain. Hourly rounding done. No acute distress noted. Fall precautions in place; bed locked and bed alarm on. Will endorse care to night shift manager, RN.
[2022-10-09 20:00] VITALS: BP 129/60
[2022-10-09] MEDS: ATORVASTATIN 20 MG TABLET PO SCH (21:07)
[2022-10-09] MEDS: MELATONIN 3 MG TABLET PO PRN (21:07)
[2022-10-10 04:00] VITALS: BP 122/65
[2022-10-10 08:04] VITALS: BP 105/58
[2022-10-10] MEDS: BACLOFEN 10 MG TABLET PO SCH ×2 (09:11→16:53)
[2022-10-10] MEDS: RALOXIFENE HCL 60 MG TABLET PO SCH (09:11)
[2022-10-10] MEDS: CHOLECALCIFEROL 1,000 UNIT TABLET PO SCH (09:11)
[2022-10-10] MEDS: CALCIUM CARB/VITAMIN D 600-400 MG TABLET PO SCH (09:12)
[2022-10-10] MEDS: FLUOXETINE HCL 20 MG CAPSULE PO SCH (09:12)
[2022-10-10] MEDS: MULTIVITAMINS,THERAPEUTIC TABLET PO SCH (09:12)
[2022-10-10] MEDS: ENSURE ENLIVE (VAN) 240 ML LIQUID PO SCH (09:12)
--- NOTE | 2022-10-10 11:21 | NUR ---
INTERDISCIPLINARY TEAM CONFERENCE
[2022-10-10 16:06] VITALS: BP 112/54
[2022-10-10 20:00] VITALS: BP 102/53
[2022-10-10] MEDS: ATORVASTATIN 20 MG TABLET PO SCH (21:06)
[2022-10-11 04:00] VITALS: BP 115/57
--- NOTE | 2022-10-11 07:18 | NUR ---
PT STABLE SLEPT FOR LONG PERIODS. PHARMACY ATTEMPTING TO GET INFORMATION RE MEDS PT TAKES AT HOME HOWEVER HER SISTER POSSIBLE TAKING SAME TODAY.
[2022-10-11 07:40] VITALS: BP 115/60
[2022-10-11 07:42] VITALS: BP 110/60
[2022-10-11] MEDS: CALCIUM CARB/VITAMIN D 600-400 MG TABLET PO SCH (08:42)
[2022-10-11] MEDS: FLUOXETINE HCL 20 MG CAPSULE PO SCH (08:42)
[2022-10-11] MEDS: MULTIVITAMINS,THERAPEUTIC TABLET PO SCH (08:43)
[2022-10-11] MEDS: CHOLECALCIFEROL 1,000 UNIT TABLET PO SCH (08:43)
[2022-10-11] MEDS: RALOXIFENE HCL 60 MG TABLET PO SCH (08:44)
[2022-10-11] MEDS: BACLOFEN 10 MG TABLET PO SCH ×2 (08:49→16:22)
[2022-10-11] MEDS: ENSURE ENLIVE (VAN) 240 ML LIQUID PO SCH (09:16)
[2022-10-11 15:16] VITALS: BP 120/73
--- NOTE | 2022-10-11 18:23 | NUR ---
Patient alert and oriented X4, able make her needs known, follows directions, compliant with her care/treatment and nursing staff. Due medications administered as scheduled/ordered by MD with no ASE noted. Patient free of pain during the shift. Continues under rehab for PT/OT skilled services, patient able to actively participate in therapy w/ no interruptions caused by pain. Patient's gait pattern is off balance with rt leg stiff, but able to manage to move it with the help of rehab staff and using FWW. Patient at high risk for falls and self injury DT difficulty in walking, poor coordination and balance control, somewhat with shuffling gait pattern. Patient has Dx: of multiple sclerosis with BLE weakness, safety precautions observed and safety precaution reminders provided as needed. Encouraged Patient to use call light for help every time needed with good understanding. Assisted with ADLS, care provided at routine intervals/frequent visual checks done and call lights answered promptly to ensure safety. No changes in medical condition noted, patient within her baseline, no respiratory distress, on R/A and lorena. well, denies any pain/discomfort, VSS and logged accordingly. All needs anticipated and met. No unusual findings or unusual events during shift.
[2022-10-11 20:00] VITALS: BP 100/48
[2022-10-11] MEDS: ATORVASTATIN 20 MG TABLET PO SCH (20:38)
[2022-10-11] MEDS: DALFAMPRIDINE 10 MG PO SCH (20:47)
[2022-10-12 04:00] VITALS: BP 100/45
--- NOTE | 2022-10-12 06:02 | NUR ---
Patient slept intermittently, no acute distress noted. Denies pain/discomfort. Needs assessed and attended to. Kept clean dry and comfortable. Call light within easy reach.
[2022-10-12 07:33] VITALS: BP 104/60
[2022-10-12] MEDS: BACLOFEN 10 MG TABLET PO SCH ×2 (09:06→16:30)
[2022-10-12] MEDS: CHOLECALCIFEROL 1,000 UNIT TABLET PO SCH (09:06)
[2022-10-12] MEDS: CALCIUM CARB/VITAMIN D 600-400 MG TABLET PO SCH (09:06)
[2022-10-12] MEDS: FLUOXETINE HCL 20 MG CAPSULE PO SCH (09:06)
[2022-10-12] MEDS: MULTIVITAMINS,THERAPEUTIC TABLET PO SCH (09:06)
[2022-10-12] MEDS: ENSURE ENLIVE (VAN) 240 ML LIQUID PO SCH (09:07)
[2022-10-12] MEDS: RALOXIFENE HCL 60 MG TABLET PO SCH (09:07)
[2022-10-12] MEDS: DALFAMPRIDINE 10 MG PO SCH ×2 (12:35→21:18)
[2022-10-12 15:08] VITALS: BP 105/54
[2022-10-12 20:00] VITALS: BP 98/58
[2022-10-12] MEDS: ATORVASTATIN 20 MG TABLET PO SCH (21:18)
[2022-10-13 03:58] VITALS: BP 110/48
--- NOTE | 2022-10-13 06:25 | NUR ---
pT STABLE SLEPT FOR LONG PERIODS.
[2022-10-13 07:41] VITALS: BP 97/50
[2022-10-13] MEDS: RALOXIFENE HCL 60 MG TABLET PO SCH (08:17)
[2022-10-13] MEDS: CALCIUM CARB/VITAMIN D 600-400 MG TABLET PO SCH (08:17)
[2022-10-13] MEDS: DALFAMPRIDINE 10 MG PO SCH ×2 (08:17→21:34)
[2022-10-13] MEDS: CHOLECALCIFEROL 1,000 UNIT TABLET PO SCH (08:18)
[2022-10-13] MEDS: BACLOFEN 10 MG TABLET PO SCH ×2 (08:18→16:49)
[2022-10-13] MEDS: MULTIVITAMINS,THERAPEUTIC TABLET PO SCH (08:18)
[2022-10-13] MEDS: FLUOXETINE HCL 20 MG CAPSULE PO SCH (08:18)
[2022-10-13] MEDS: ENSURE ENLIVE (VAN) 240 ML LIQUID PO SCH (08:18)
[2022-10-13 15:57] VITALS: BP 116/58
--- NOTE | 2022-10-13 18:38 | NUR ---
Received report from GARO Sal. Patient is alert and oriented x4 and speaks [place] Lankan. Participates in physical and occupational therapy per schedule. Tolerates PO medications and regular diet well. Pt. voids adequately and had 1 bowel movement. No acute distress noted. Denies pain. Fall precautions in place; bed in lowest position and bed alarm on.
[2022-10-13 20:00] VITALS: BP 98/56
[2022-10-13] MEDS: ATORVASTATIN 20 MG TABLET PO SCH (21:34)
[2022-10-14 04:37] VITALS: BP 98/50
[2022-10-14 07:50] VITALS: BP 100/42
[2022-10-14] MEDS: FLUOXETINE HCL 20 MG CAPSULE PO SCH (08:35)
[2022-10-14] MEDS: MULTIVITAMINS,THERAPEUTIC TABLET PO SCH (08:35)
[2022-10-14] MEDS: CALCIUM CARB/VITAMIN D 600-400 MG TABLET PO SCH (08:36)
[2022-10-14] MEDS: RALOXIFENE HCL 60 MG TABLET PO SCH (08:36)
[2022-10-14] MEDS: BACLOFEN 10 MG TABLET PO SCH ×2 (08:36→16:00)
[2022-10-14] MEDS: CHOLECALCIFEROL 1,000 UNIT TABLET PO SCH (08:36)
[2022-10-14] MEDS: DALFAMPRIDINE 10 MG PO SCH ×2 (08:37→21:13)
[2022-10-14] MEDS: ENSURE ENLIVE (VAN) 240 ML LIQUID PO SCH (08:37)
[2022-10-14 16:57] VITALS: BP 106/60
[2022-10-14 20:48] VITALS: BP 98/53
[2022-10-14] MEDS: MELATONIN 3 MG TABLET PO PRN (21:13)
[2022-10-14] MEDS: ATORVASTATIN 20 MG TABLET PO SCH (21:13)
[2022-10-15 04:30] VITALS: BP 100/54
[2022-10-15 07:44] VITALS: BP 93/52
[2022-10-15] MEDS: CALCIUM CARB/VITAMIN D 600-400 MG TABLET PO SCH (09:22)
[2022-10-15] MEDS: CHOLECALCIFEROL 1,000 UNIT TABLET PO SCH (09:22)
[2022-10-15] MEDS: BACLOFEN 10 MG TABLET PO SCH ×2 (09:22→17:16)
[2022-10-15] MEDS: FLUOXETINE HCL 20 MG CAPSULE PO SCH (09:23)
[2022-10-15] MEDS: RALOXIFENE HCL 60 MG TABLET PO SCH (09:23)
[2022-10-15] MEDS: MULTIVITAMINS,THERAPEUTIC TABLET PO SCH (09:23)
[2022-10-15] MEDS: DALFAMPRIDINE 10 MG PO SCH ×2 (09:23→20:47)
[2022-10-15] MEDS: ENSURE ENLIVE (VAN) 240 ML LIQUID PO SCH (09:24)
[2022-10-15 16:00] VITALS: BP 116/51
--- NOTE | 2022-10-15 18:18 | NUR ---
PATIENT TOLERATED PHYSICAL THERAPY WELL SEEN AMBULATING IN THE HALLWAY WITH THE FRONT WHEEL WALKER WITH GOOD ENDURANCE.
[2022-10-15 20:00] VITALS: BP 98/53
[2022-10-15] MEDS: ATORVASTATIN 20 MG TABLET PO SCH (20:48)
[2022-10-16 04:00] VITALS: BP 105/53
[2022-10-16 07:42] VITALS: BP 103/58
[2022-10-16] MEDS: MULTIVITAMINS,THERAPEUTIC TABLET PO SCH (09:23)
[2022-10-16] MEDS: CHOLECALCIFEROL 1,000 UNIT TABLET PO SCH (09:23)
[2022-10-16] MEDS: FLUOXETINE HCL 20 MG CAPSULE PO SCH (09:23)
[2022-10-16] MEDS: ENSURE ENLIVE (VAN) 240 ML LIQUID PO SCH (09:24)
[2022-10-16] MEDS: BACLOFEN 10 MG TABLET PO SCH ×2 (09:24→17:22)
[2022-10-16] MEDS: CALCIUM CARB/VITAMIN D 600-400 MG TABLET PO SCH (09:24)
[2022-10-16] MEDS: RALOXIFENE HCL 60 MG TABLET PO SCH (09:24)
[2022-10-16] MEDS: DALFAMPRIDINE 10 MG PO SCH ×2 (09:26→21:03)
[2022-10-16 15:19] VITALS: BP 120/61
[2022-10-16 20:00] VITALS: BP 115/64
[2022-10-16] MEDS: ATORVASTATIN 20 MG TABLET PO SCH (21:03)
[2022-10-17 04:00] VITALS: BP 103/49
--- NOTE | 2022-10-17 04:26 | NUR ---
She is alert, orient x4. assistance with the bathroom x2, voiding okay, purewick applied night with yellow urine, no complain of the pain during the shift, VS stable.
[2022-10-17 08:04] VITALS: BP 100/51
[2022-10-17] MEDS: MULTIVITAMINS,THERAPEUTIC TABLET PO SCH (09:39)
[2022-10-17] MEDS: FLUOXETINE HCL 20 MG CAPSULE PO SCH (09:39)
[2022-10-17] MEDS: BACLOFEN 10 MG TABLET PO SCH ×2 (09:39→17:40)
[2022-10-17] MEDS: RALOXIFENE HCL 60 MG TABLET PO SCH (09:39)
[2022-10-17] MEDS: CHOLECALCIFEROL 1,000 UNIT TABLET PO SCH (09:39)
[2022-10-17] MEDS: CALCIUM CARB/VITAMIN D 600-400 MG TABLET PO SCH (09:40)
[2022-10-17] MEDS: DALFAMPRIDINE 10 MG PO SCH ×2 (09:40→20:58)
[2022-10-17] MEDS: ENSURE ENLIVE (VAN) 240 ML LIQUID PO SCH (09:40)
--- NOTE | 2022-10-17 14:44 | NUR ---
INTERDISCIPLINARY TEAM CONFERENCE
[2022-10-17 16:46] VITALS: BP 117/66
[2022-10-17 20:00] VITALS: BP 99/60
[2022-10-17] MEDS: ATORVASTATIN 20 MG TABLET PO SCH (20:58)
[2022-10-17] MEDS: MELATONIN 3 MG TABLET PO PRN (22:39)
[2022-10-17 22:40] LABS: *BILIRUBIN,URIN NEGATIVE (NEGATIVE); *BLOOD, URINE NEGATIVE (NEGATIVE); *CLARITY,URINE CLEAR (CLEAR); *COLOR,URINE YELLOW (YELLOW); *KETONES,URINE NEGATIVE (NEGATIVE); *UROBILINOGEN,URINE 0.2 E.U./dl (NORMAL); LEUKOCYTE ESTERASE ,URINE NEGATIVE (NEGATIVE); NITRITE, URINE NEGATIVE (NEGATIVE); UGLUCOSE NEGATIVE (NEGATIVE)
[2022-10-18 04:00] VITALS: BP 101/62
--- NOTE | 2022-10-18 06:42 | NUR ---
Shift End Report: Slept well. No complaint presented all night. All needs attended and met. Continue current rehab plan of care.
[2022-10-18 07:37] VITALS: BP 102/48
[2022-10-18] MEDS: CALCIUM CARB/VITAMIN D 600-400 MG TABLET PO SCH (09:04)
[2022-10-18] MEDS: CHOLECALCIFEROL 1,000 UNIT TABLET PO SCH (09:04)
[2022-10-18] MEDS: BACLOFEN 10 MG TABLET PO SCH ×2 (09:04→16:31)
[2022-10-18] MEDS: FLUOXETINE HCL 20 MG CAPSULE PO SCH (09:04)
[2022-10-18] MEDS: MULTIVITAMINS,THERAPEUTIC TABLET PO SCH (09:04)
[2022-10-18] MEDS: DALFAMPRIDINE 10 MG PO SCH ×2 (09:05→20:39)
[2022-10-18] MEDS: ENSURE ENLIVE (VAN) 240 ML LIQUID PO SCH (09:05)
[2022-10-18] MEDS: RALOXIFENE HCL 60 MG TABLET PO SCH (09:05)
[2022-10-18 11:11] VITALS: BP 102/48
[2022-10-18 16:12] VITALS: BP 108/57
--- NOTE | 2022-10-18 18:33 | NUR ---
Patient alert and oriented, able to communicate her needs. OOB during shift, ambulating with therapy/rehab dept. and using FWW; Patient still with unsteady gait and right leg stiff, able to maneuver it. Patient compliant with medication/treatment/care; eating and drinking well. Fall precautions observed, a clutter free environment provided. No unusual events or DEAN noted, all needs anticipated and met.
[2022-10-18 20:00] VITALS: BP 103/67
[2022-10-18] MEDS: ATORVASTATIN 20 MG TABLET PO SCH (20:39)
[2022-10-19 04:00] VITALS: BP 101/66
[2022-10-19 07:39] VITALS: BP 112/64
[2022-10-19] MEDS: FLUOXETINE HCL 20 MG CAPSULE PO SCH (08:52)
[2022-10-19] MEDS: CHOLECALCIFEROL 1,000 UNIT TABLET PO SCH (08:52)
[2022-10-19] MEDS: DALFAMPRIDINE 10 MG PO SCH (08:52)
[2022-10-19] MEDS: BACLOFEN 10 MG TABLET PO SCH (08:52)
[2022-10-19] MEDS: RALOXIFENE HCL 60 MG TABLET PO SCH (08:52)
[2022-10-19] MEDS: MULTIVITAMINS,THERAPEUTIC TABLET PO SCH (08:52)
[2022-10-19] MEDS: CALCIUM CARB/VITAMIN D 600-400 MG TABLET PO SCH (08:52)
[2022-10-19] MEDS: ENSURE ENLIVE (VAN) 240 ML LIQUID PO SCH (08:53)
--- NOTE | 2022-10-19 15:12 | NUR ---
Patient found awake and comfortable in hospital bed. She is alert and oriented x4. Verbally responsive and can make her needs known. She denied pain when asked. Normal air movement with no apparent distress noted. Calm and relax currently. She came from home with Malaise, MS, and general weakness. vitals are WNL. Skin intact, cool to the touch with no redness and no edema noted. Morning medication taken whole with no distress. Patient is scheduled to go home today 10/19/22 at 3pm by ambulance. No new concerns at this time. will monitor.
[2022-10-19 16:40] VITALS: BP 106/67
--- NOTE | 2022-10-19 16:40 | NUR ---
Patient just got picked up by ambulance at 1639. She is going home stable with no s/s of acute pain nor distress.
== END 2022-10-19 16:40 | disposition home health service (06) | DRG 60 ==
PROVIDERS: ADMIT Physical Medicine & Rehabilitation Pain Medicine; ATTEND Physical Medicine & Rehabilitation Pain Medicine
DX: G35 Multiple sclerosis (principal); R53.1 Weakness; S92.342D Displaced fracture of fourth metatarsal bone, left foot, subsequent encounter for fracture with routine healing; W18.30XD Fall on same level, unspecified, subsequent encounter; R26.81 Unsteadiness on feet; Z91.81 History of falling; Z85.3 Personal history of malignant neoplasm of breast; D69.6 Thrombocytopenia, unspecified; E88.09 Other disorders of plasma-protein metabolism, not elsewhere classified; Z88.0 Allergy status to penicillin; Z88.1 Allergy status to other antibiotic agents; M81.0 Age-related osteoporosis without current pathological fracture; Z96.82 Presence of neurostimulator; N32.81 Overactive bladder
CPT/HCPCS: 97161; 97535-GO-CO

== ENCOUNTER 2025-03-07 20:54 | Inpatient (IN) | payer MEDICARE ==
[~2025-03-07] VITALS: Ht 157.5 cm; Wt 75.0 kg
[2025-03-07 21:29] LABS: BASOPHILS % (AUTO) 0.5 % (0.0-2.0); EOSINOPHILS # (AUTO) 0.2 K/uL (0.0-0.7); EOSINOPHILS % (AUTO) 2.7 % (0.0-7.0); HEMATOCRIT 35.7 % (31.2-41.9); HEMOGLOBIN 11.8 g/dL (10.9-14.3); LYMPHOCYTES # (AUTO) 1.5 K/uL (0.8-4.8); LYMPHOCYTES % (AUTO) 19.4 % (20.5-51.5); MEAN CORPUSCULAR HEMOGLOBIN 29.5 uug (24.7-32.8); MEAN CORPUSCULAR HGB CONC 33 g/dL (32.3-35.6); MEAN CORPUSCULAR VOLUME 89.4 fL (75.5-95.3); MONOCYTES # (AUTO) 0.7 K/uL (0.1-1.30); NEUTROPHILS # (AUTO) 5.1 K/uL (1.8-8.9); NEUTROPHILS % (AUTO) 68.4 % (38.5-71.5); PLATELET COUNT (AUTO) 187 K/uL (179-408); RED BLOOD CELL COUNT(AUTO) 3.99 MIL/uL (3.63-4.92); RED CELL DISTRIBUTION WIDTH 13.6 % (12.3-17.7); WHITE BLOOD COUNT (AUTO) 7.5 K/uL (3.8-11.8)
[2025-03-07 21:35] LABS: DIFFERENTIAL COMMENT 1
[2025-03-07 21:39] LABS: POTASSIUM 4.3 mmol/L (3.5-5.1)
[2025-03-07 21:51] LABS: ALBUMIN 3.6 g/dL (3.4-5.0); BILIRUBIN,TOTAL 0.7 mg/dL (0.2-1.0); CALCIUM 8.8 mg/dL (8.5-10.1); TOTAL PROTEIN, SERUM 7.7 g/dL (6.4-8.2)
[2025-03-07] MEDS: IV NS 1000 ML 1,000 ML IV ONE (22:36)
[2025-03-07] MEDS ORDERED: BACL10TA PO (23:48)
[2025-03-08 01:38] LABS: *BILIRUBIN,URIN NEGATIVE (NEGATIVE); *BLOOD, URINE NEGATIVE (NEGATIVE); *CLARITY,URINE CLEAR (CLEAR); *COLOR,URINE YELLOW (YELLOW); *KETONES,URINE NEGATIVE (NEGATIVE); *PROTEIN,URINE NEGATIVE (NEGATIVE); *UROBILINOGEN,URINE 0.2 E.U./dl (NORMAL); LEUKOCYTE ESTERASE ,URINE NEGATIVE (NEGATIVE); NITRITE, URINE NEGATIVE (NEGATIVE); UGLUCOSE NEGATIVE (NEGATIVE)
[2025-03-08] MEDS ORDERED: ACETAMINOPHEN 325 MG TABLET PO PRN (02:15)
[2025-03-08] MEDS ORDERED: MAGNESIUM HYDROXIDE 30 ML LIQUID UDC PO PRN (02:15)
[2025-03-08] MEDS ORDERED: REMEDY ESSENTIAL ZINC PASTE 113 GM TP PRN (02:15)
[2025-03-08] MEDS ORDERED: ONDANSETRON 4 MG/2 ML VIAL IV PRN (02:15)
[2025-03-08] MEDS: PANTOPRAZOLE SODIUM 40 MG TABLET.DR PO SCH (06:35)
[2025-03-08 06:42] LABS: BASOPHILS # (AUTO) 0.1 K/UL (0.0-0.2); BASOPHILS % (AUTO) 0.8 % (0.0-2.0); EOSINOPHILS # (AUTO) 0.2 K/uL (0.0-0.7); EOSINOPHILS % (AUTO) 3.8 % (0.0-7.0); HEMATOCRIT 31.7 % (31.2-41.9); HEMOGLOBIN 10.6 g/dL (10.9-14.3); LYMPHOCYTES # (AUTO) 2.2 K/uL (0.8-4.8); LYMPHOCYTES % (AUTO) 33.6 % (20.5-51.5); MEAN CORPUSCULAR HEMOGLOBIN 30.1 uug (24.7-32.8); MEAN CORPUSCULAR HGB CONC 34 g/dL (32.3-35.6); MEAN CORPUSCULAR VOLUME 89.9 fL (75.5-95.3); MONOCYTES # (AUTO) 0.7 K/uL (0.1-1.30); MONOCYTES % (AUTO) 10.5 % (0.0-11.0); NEUTROPHILS # (AUTO) 3.3 K/uL (1.8-8.9); NEUTROPHILS % (AUTO) 51.3 % (38.5-71.5); PLATELET COUNT (AUTO) 158 K/uL (179-408); RED BLOOD CELL COUNT(AUTO) 3.53 MIL/uL (3.63-4.92); RED CELL DISTRIBUTION WIDTH 13.6 % (12.3-17.7); WHITE BLOOD COUNT (AUTO) 6.4 K/uL (3.8-11.8)
[2025-03-08 06:47] LABS: CALCIUM 8.4 mg/dL (8.5-10.1); CREATININE 0.6 mg/dL (0.6-1.3)
[2025-03-08 06:58] LABS: DIFFERENTIAL COMMENT 1
[2025-03-08 07:25] LABS: THYROID STIMULATING HORMONE 2.219 mIU/mL (0.358-3.740)
[2025-03-08] MEDS: ENOXAPARIN SODIUM 40 MG/0.4 ML DISP.SYRIN SQ SCH (08:25)
[2025-03-08] MEDS ORDERED: NITR100C12 PO (10:32)
[2025-03-08] MEDS ORDERED: FLUO20CA42 PO (10:33)
[2025-03-08] MEDS ORDERED: FAMO20TA8 PO (10:34)
[2025-03-08] MEDS ORDERED: ZOLP5TAB8 PO (10:34)
[2025-03-08] MEDS ORDERED: CALC600T35 PO (10:36)
[2025-03-08] MEDS ORDERED: DALF10TA PO (10:56)
[2025-03-08] MEDS: BACLOFEN 10 MG TABLET PO SCH (14:28)
[2025-03-08] MEDS: NITROFURANTOIN/NITROFURAN MAC 100 MG CAPSULE PO SCH (15:21)
[2025-03-08] MEDS ORDERED: FAMOTIDINE 20 MG TABLET PO SCH (17:00)
[2025-03-08] MEDS: CALCIUM CARBONATE 600 MG TABLET PO SCH (17:46)
[2025-03-08 19:46] VITALS: BP 97/43; TEMP 98; O2SAT 99
[2025-03-08] MEDS: BACLOFEN 20 MG TABLET PO SCH (20:17)
[2025-03-08] MEDS: ATORVASTATIN 20 MG TABLET PO SCH (20:18)
[2025-03-08] MEDS: ZOLPIDEM 5 MG TABLET PO SCH (20:33)
[2025-03-09 05:37] VITALS: BP 111/60; TEMP 98.8; O2SAT 95
[2025-03-09 06:06] LABS: BASOPHILS % (AUTO) 0.7 % (0.0-2.0); EOSINOPHILS # (AUTO) 0.2 K/uL (0.0-0.7); EOSINOPHILS % (AUTO) 2.2 % (0.0-7.0); HEMATOCRIT 31.4 % (31.2-41.9); HEMOGLOBIN 10.6 g/dL (10.9-14.3); LYMPHOCYTES # (AUTO) 1.8 K/uL (0.8-4.8); LYMPHOCYTES % (AUTO) 25.2 % (20.5-51.5); MEAN CORPUSCULAR HEMOGLOBIN 30.2 uug (24.7-32.8); MEAN CORPUSCULAR HGB CONC 34 g/dL (32.3-35.6); MEAN CORPUSCULAR VOLUME 89.9 fL (75.5-95.3); MONOCYTES # (AUTO) 0.7 K/uL (0.1-1.30); MONOCYTES % (AUTO) 9.5 % (0.0-11.0); NEUTROPHILS # (AUTO) 4.4 K/uL (1.8-8.9); NEUTROPHILS % (AUTO) 62.4 % (38.5-71.5); PLATELET COUNT (AUTO) 171 K/uL (179-408); RED BLOOD CELL COUNT(AUTO) 3.49 MIL/uL (3.63-4.92); RED CELL DISTRIBUTION WIDTH 13.6 % (12.3-17.7); WHITE BLOOD COUNT (AUTO) 7.1 K/uL (3.8-11.8)
[2025-03-09 06:18] LABS: CALCIUM 8.7 mg/dL (8.5-10.1); CREATININE 0.7 mg/dL (0.6-1.3); MAGNESIUM 1.9 mg/dL (1.8-2.4); PHOSPHOROUS 3.5 mg/dL (2.5-4.9)
[2025-03-09 06:21] LABS: DIFFERENTIAL COMMENT 1
[2025-03-09 06:25] LABS: THYROID STIMULATING HORMONE 1.505 mIU/mL (0.358-3.740)
[2025-03-09] MEDS: FLUOXETINE HCL 20 MG CAPSULE PO SCH (08:24)
[2025-03-09] MEDS: CHOLECALCIFEROL 1,000 UNIT TABLET PO SCH (08:24)
[2025-03-09 11:18] VITALS: BP 131/47; TEMP 97.8; O2SAT 96
[2025-03-09 15:53] VITALS: BP 115/55; TEMP 97.7; O2SAT 97
[2025-03-09] MEDS ORDERED: PANT40TA49 PO (17:52)
[2025-03-09] MEDS ORDERED: ENOX40DI SQ (17:53)
[2025-03-09] MEDS ORDERED: ACET325C7 PO (17:54)
[2025-03-09] MEDS ORDERED: MAGN400O6 PO (17:55)
[2025-03-09] MEDS ORDERED: Z GUARD REMEDY PASTE TOP (17:58)
== END 2025-03-09 16:58 | DRG 60 ==
LOC: ER 20:59 → MEDSURG3 03-08 02:05
PROVIDERS: ADMIT Nurse Practitioner Family; ATTEND Nurse Practitioner Acute Care
DX: G35 Multiple sclerosis (principal); M62.838 Other muscle spasm; R29.6 Repeated falls; Z74.09 Other reduced mobility; F32.A Depression, unspecified; E78.5 Hyperlipidemia, unspecified; M81.0 Age-related osteoporosis without current pathological fracture; Z88.1 Allergy status to other antibiotic agents; Z88.0 Allergy status to penicillin; Z87.81 Personal history of (healed) traumatic fracture; Z85.3 Personal history of malignant neoplasm of breast; Z87.440 Personal history of urinary (tract) infections
CPT/HCPCS: 36415; 70450; 71045; 83605; 83735; 84100; 84443; 84484; 85025; 87040; A4606; G0378; J1650; J7040

== ENCOUNTER 2025-03-09 09:51 | Inpatient (IN) | payer MEDICARE ==
[~2025-03-09] VITALS: Ht 157.5 cm; Wt 74.8 kg
[~2025-03-09 09:51] MED LIST changes: -ACET-2154 PO; -BIOT10005 PO; -CALC1TAB3 PO; +CALC600T35 PO; +DALF10TA PO; -DALF10TA2 PO; +FAMO20TA8 PO; +FLUO20CA42 PO; -FLUO40CA49 PO; -MELA5TAB PO; +NITR100C12 PO; -OCRE300V IV; -RALO60TA PO; +ZOLP5TAB8 PO
[2025-03-09 10:04] VITALS: BP 111/60; TEMP 98.8
[2025-03-09 10:36] VITALS: BP 111/60; TEMP 98.8
[2025-03-09 17:50] VITALS: BP 124/54; TEMP 97.2; O2SAT 97
[2025-03-09] MEDS ORDERED: PANT40TA49 PO (17:52)
[2025-03-09] MEDS ORDERED: ENOX40DI SQ (17:53)
[2025-03-09] MEDS ORDERED: ACET325C7 PO (17:54)
[2025-03-09] MEDS ORDERED: MAGN400O6 PO (17:55)
[2025-03-09] MEDS ORDERED: Z GUARD REMEDY PASTE TOP (17:58)
[2025-03-09] MEDS ORDERED: REMEDY ESSENTIAL ZINC PASTE 113 GM TOP PRN (18:30)
[2025-03-09 21:24] VITALS: BP 101/47; TEMP 97.8; O2SAT 95
[2025-03-09] MEDS ORDERED: Z GUARD REMEDY PASTE TOP PRN (21:30)
[2025-03-09] MEDS ORDERED: MAGNESIUM HYDROXIDE 30 ML LIQUID UDC PO PRN (21:30)
[2025-03-09] MEDS ORDERED: DALFAMPRIDINE PO PRN (21:30)
[2025-03-09] MEDS: BACLOFEN 10 MG TABLET PO SCH (21:55)
[2025-03-09] MEDS: ZOLPIDEM 5 MG TABLET PO SCH (21:59)
[2025-03-10 07:19] VITALS: BP 105/49; TEMP 98; O2SAT 96
[2025-03-10] MEDS: BACLOFEN 10 MG TABLET PO SCH (07:22)
[2025-03-10 07:38] LABS: BASOPHILS % (AUTO) 0.6 % (0.0-2.0); EOSINOPHILS # (AUTO) 0.2 K/uL (0.0-0.7); EOSINOPHILS % (AUTO) 2.4 % (0.0-7.0); HEMATOCRIT 32.8 % (31.2-41.9); HEMOGLOBIN 11.1 g/dL (10.9-14.3); LYMPHOCYTES % (AUTO) 29.3 % (20.5-51.5); MEAN CORPUSCULAR HEMOGLOBIN 30.1 uug (24.7-32.8); MEAN CORPUSCULAR HGB CONC 34 g/dL (32.3-35.6); MEAN CORPUSCULAR VOLUME 89.2 fL (75.5-95.3); MONOCYTES # (AUTO) 0.6 K/uL (0.1-1.30); MONOCYTES % (AUTO) 9.1 % (0.0-11.0); NEUTROPHILS # (AUTO) 4.1 K/uL (1.8-8.9); NEUTROPHILS % (AUTO) 58.6 % (38.5-71.5); PLATELET COUNT (AUTO) 187 K/uL (179-408); RED BLOOD CELL COUNT(AUTO) 3.68 MIL/uL (3.63-4.92); RED CELL DISTRIBUTION WIDTH 13.6 % (12.3-17.7); WHITE BLOOD COUNT (AUTO) 6.9 K/uL (3.8-11.8)
[2025-03-10 07:46] LABS: DIFFERENTIAL COMMENT 1
[2025-03-10 07:51] VITALS: BP 104/67; TEMP 97.6
[2025-03-10 07:55] LABS: ALBUMIN 3.1 g/dL (3.4-5.0); BILIRUBIN,TOTAL 0.6 mg/dL (0.2-1.0); CALCIUM 8.7 mg/dL (8.5-10.1); CREATININE 0.5 mg/dL (0.6-1.3); PHOSPHOROUS 4.2 mg/dL (2.5-4.9); TOTAL PROTEIN, SERUM 6.7 g/dL (6.4-8.2)
[2025-03-10] MEDS: MULTIVITAMINS,THERAPEUTIC TABLET PO SCH (08:21)
[2025-03-10] MEDS: CHOLECALCIFEROL 1,000 UNIT TABLET PO SCH (08:21)
[2025-03-10] MEDS: NITROFURANTOIN/NITROFURAN MAC 100 MG CAPSULE PO SCH (08:21)
[2025-03-10] MEDS: PANTOPRAZOLE SODIUM 40 MG TABLET.DR PO SCH (08:21)
[2025-03-10] MEDS: FLUOXETINE HCL 20 MG CAPSULE PO SCH (08:22)
[2025-03-10] MEDS: ENOXAPARIN SODIUM 40 MG/0.4 ML DISP.SYRIN SQ SCH (08:23)
[2025-03-10 15:49] VITALS: BP 108/72; TEMP 97
[2025-03-10] MEDS: ATORVASTATIN 20 MG TABLET PO SCH (21:10)
[2025-03-10 21:48] VITALS: BP 108/50; TEMP 98.2; O2SAT 96
[2025-03-11 07:17] VITALS: BP 108/45; TEMP 98; O2SAT 96
[2025-03-11 08:00] VITALS: BP 109/48; TEMP 97.2; O2SAT 96
[2025-03-11 16:00] VITALS: BP 125/53; TEMP 97.2; O2SAT 98
[2025-03-11 19:19] VITALS: BP 118/72; TEMP 98.1; O2SAT 95
[2025-03-12 05:50] VITALS: BP 114/54; TEMP 98; O2SAT 97
[2025-03-12 07:57] VITALS: BP 105/58; TEMP 97.4; O2SAT 93
[2025-03-12 15:26] VITALS: BP 104/67; TEMP 97.4; O2SAT 95
[2025-03-12 19:32] VITALS: BP 113/55; TEMP 98; O2SAT 96
[2025-03-12] MEDS: BACLOFEN 20 MG TABLET PO SCH (21:17)
[2025-03-13 05:20] VITALS: BP 114/67; TEMP 98; O2SAT 95
[2025-03-13 08:00] VITALS: BP 106/48; TEMP 98.2; O2SAT 99
[2025-03-13 16:16] VITALS: BP 112/61; TEMP 97.9; O2SAT 96
[2025-03-13 21:33] VITALS: BP 120/74; TEMP 97.4; O2SAT 96
[2025-03-14 06:47] VITALS: BP 135/72; TEMP 97.5; O2SAT 95
[2025-03-14 08:00] VITALS: BP 107/50; TEMP 97.9; O2SAT 100
[2025-03-14 16:01] VITALS: BP 122/53; TEMP 98.8; O2SAT 95
[2025-03-14 20:39] VITALS: BP 104/52; TEMP 97.2; O2SAT 97
[2025-03-15 06:53] VITALS: BP 110/62; TEMP 97.8; O2SAT 97
[2025-03-15 07:51] VITALS: TEMP 98
[2025-03-15 22:40] VITALS: BP 113/61; TEMP 98.1; O2SAT 95
[2025-03-16 07:14] VITALS: BP 112/50; TEMP 97.8; O2SAT 95
[2025-03-16 07:32] LABS: BASOPHILS # (AUTO) 0.1 K/UL (0.0-0.2); BASOPHILS % (AUTO) 0.9 % (0.0-2.0); EOSINOPHILS # (AUTO) 0.2 K/uL (0.0-0.7); HEMATOCRIT 32.9 % (31.2-41.9); HEMOGLOBIN 11.1 g/dL (10.9-14.3); LYMPHOCYTES % (AUTO) 30.1 % (20.5-51.5); MEAN CORPUSCULAR HEMOGLOBIN 29.9 uug (24.7-32.8); MEAN CORPUSCULAR HGB CONC 34 g/dL (32.3-35.6); MEAN CORPUSCULAR VOLUME 88.3 fL (75.5-95.3); MONOCYTES # (AUTO) 0.6 K/uL (0.1-1.30); MONOCYTES % (AUTO) 8.4 % (0.0-11.0); NEUTROPHILS # (AUTO) 3.8 K/uL (1.8-8.9); NEUTROPHILS % (AUTO) 57.6 % (38.5-71.5); PLATELET COUNT (AUTO) 179 K/uL (179-408); RED BLOOD CELL COUNT(AUTO) 3.73 MIL/uL (3.63-4.92); RED CELL DISTRIBUTION WIDTH 13.3 % (12.3-17.7); WHITE BLOOD COUNT (AUTO) 6.6 K/uL (3.8-11.8)
[2025-03-16 07:42] LABS: CALCIUM 8.5 mg/dL (8.5-10.1); CREATININE 0.6 mg/dL (0.6-1.3); DIFFERENTIAL COMMENT 1; POTASSIUM 4.2 mmol/L (3.5-5.1)
[2025-03-16 08:00] VITALS: BP 101/60; TEMP 97.6; O2SAT 98
[2025-03-16 08:45] LABS: THYROID STIMULATING HORMONE 1.563 mIU/mL (0.358-3.740)
[2025-03-16 15:42] VITALS: BP 105/66; TEMP 97.7; O2SAT 97
[2025-03-16 20:25] VITALS: BP 120/64; TEMP 97.1; O2SAT 96
[2025-03-17 04:22] VITALS: BP 143/64; TEMP 97.7; O2SAT 98
[2025-03-17 15:20] VITALS: BP 100/61; TEMP 98.3; O2SAT 96
[2025-03-17 19:35] VITALS: BP 107/69; TEMP 97.3; O2SAT 97
[2025-03-18] MEDS: ENOXAPARIN SODIUM 40 MG/0.4 ML DISP.SYRIN SQ SCH (09:13)
[2025-03-18 15:00] VITALS: BP 109/65; TEMP 98.3; O2SAT 96
[2025-03-18 19:40] VITALS: BP 120/62; TEMP 97.8; O2SAT 98
[2025-03-19 16:39] VITALS: BP 117/64; TEMP 97.6; O2SAT 96
[2025-03-19 20:00] VITALS: BP 125/72; TEMP 97.9; O2SAT 96
[2025-03-20 05:00] VITALS: BP 126/69; TEMP 97.9; O2SAT 97
[2025-03-20 08:00] VITALS: TEMP 97.8
[2025-03-20 16:21] VITALS: TEMP 98
[2025-03-20 20:25] VITALS: BP 115/72; TEMP 97.9; O2SAT 96
[2025-03-21 05:34] VITALS: BP 95/58; TEMP 98; O2SAT 98
[2025-03-21 08:00] VITALS: BP 102/50; TEMP 97.7; O2SAT 98
[2025-03-21 22:05] VITALS: TEMP 97.9
[2025-03-22 07:09] VITALS: TEMP 97.6
[2025-03-22 08:00] VITALS: BP 98/53; TEMP 97.5; TEMP 97.7; O2SAT 97
[2025-03-22] MEDS: ACETAMINOPHEN 325 MG TABLET PO PRN (08:45)
[2025-03-22 16:00] VITALS: BP 106/62; TEMP 97.6; O2SAT 97
== END 2025-03-22 17:20 | disposition home health service (06) | DRG 59 ==
PROVIDERS: ADMIT Physical Medicine & Rehabilitation Pain Medicine; ATTEND Physical Medicine & Rehabilitation Pain Medicine
DX: G35 Multiple sclerosis (principal); N39.0 Urinary tract infection, site not specified; E78.5 Hyperlipidemia, unspecified; F32.A Depression, unspecified; Z85.3 Personal history of malignant neoplasm of breast; Z87.81 Personal history of (healed) traumatic fracture; Z88.0 Allergy status to penicillin; Z88.1 Allergy status to other antibiotic agents; R53.81 Other malaise
CPT/HCPCS: 36415; 83550; 83735; 83921; 84100; 84443; 85025; 97535-GO-CO; J1650

== ENCOUNTER 2025-08-05 10:12 | Inpatient (IN) | payer MEDICARE ==
[~2025-08-05] VITALS: Ht 157.5 cm; Wt 77.1 kg
[~2025-08-05 10:12] MED LIST changes: +ACET325C7 PO; +ENOX40DI SQ; -FAMO20TA8 PO; +MAGN400O6 PO; +PANT40TA49 PO; +Z GUARD REMEDY PASTE TOP
[2025-08-05 10:38] VITALS: BP 100/66; TEMP 97.5
[2025-08-05 13:01] VITALS: BP 100/66; TEMP 97.5
[2025-08-05 18:21] VITALS: BP 104/47; TEMP 98.2; O2SAT 99
[2025-08-05] MEDS ORDERED: MENT3.2L MM (18:36)
[2025-08-05] MEDS ORDERED: OXYC-128 PO (18:36)
[2025-08-05] MEDS ORDERED: ONDA4VIA52 IV (18:36)
[2025-08-05] MEDS ORDERED: MELA3TAB41 PO (18:36)
[2025-08-05] MEDS ORDERED: MIRA25TA PO (18:36)
[2025-08-05] MEDS ORDERED: ACET-2154 PO (18:36)
[2025-08-05] MEDS ORDERED: ATOR40TA PO (18:36)
[2025-08-05] MEDS ORDERED: PANT20TA2 PO (18:36)
[2025-08-05] MEDS ORDERED: TRAZ-182 PO (18:36)
[2025-08-05] MEDS ORDERED: BACL20TA PO (18:36)
[2025-08-05] MEDS ORDERED: MORP1SYR2 IV (18:36)
[2025-08-05] MEDS ORDERED: BENZ12LI2 MT (18:36)
[2025-08-05] MEDS ORDERED: HYDR20VI6 IVP (18:36)
[2025-08-05] MEDS ORDERED: ACETAMINOPHEN 325 MG TABLET-SA PATIENTS-PAIN ONLY PO PRN ×2 (19:00)
[2025-08-05] MEDS ORDERED: OXYCODONE/APAP 5-325 MG TABLET PO PRN (19:00)
[2025-08-05] MEDS ORDERED: TRAZODONE 50 MG TABLET PO PRN (19:00)
[2025-08-05 20:00] VITALS: BP 125/84; TEMP 98.2; O2SAT 98
[2025-08-06 05:20] VITALS: BP 129/67; TEMP 98.1; O2SAT 97
[2025-08-06] MEDS ORDERED: PANTOPRAZOLE SODIUM 40 MG TABLET.DR PO SCH (07:00)
[2025-08-06] MEDS ORDERED: ACETAMINOPHEN 325 MG TABLET PO PRN (07:15)
[2025-08-06 08:00] VITALS: BP 92/39; TEMP 97.9; O2SAT 97
[2025-08-06] MEDS: ATORVASTATIN 40 MG TABLET PO SCH (08:17)
[2025-08-06] MEDS: PANTOPRAZOLE SODIUM 40 MG TABLET.DR PO SCH (08:17)
[2025-08-06] MEDS: FLUOXETINE HCL 20 MG CAPSULE PO SCH (08:17)
[2025-08-06] MEDS: BACLOFEN 20 MG TABLET PO SCH (08:17)
[2025-08-06] MEDS: ENOXAPARIN SODIUM 40 MG/0.4 ML DISP.SYRIN SQ SCH (10:56)
[2025-08-06] MEDS ORDERED: BENZOCAINE/MENTH/CETYLPYRD LOZENGE MM PRN (15:30)
[2025-08-06 16:00] VITALS: BP 119/72; TEMP 98.1; O2SAT 98
[2025-08-06 20:06] VITALS: BP 111/69; TEMP 98.1; O2SAT 97
[2025-08-07 05:12] VITALS: BP 107/67; TEMP 98.7; O2SAT 96
[2025-08-07 07:42] LABS: PLATELET COUNT (AUTO) 287 K/uL (179-408); RED BLOOD CELL COUNT(AUTO) 4.16 MIL/uL (3.63-4.92); RED CELL DISTRIBUTION WIDTH 14.0 % (12.3-17.7); WHITE BLOOD COUNT (AUTO) 5.6 K/uL (3.8-11.8)
[2025-08-07 07:56] LABS: CREATININE 0.6 mg/dL (0.6-1.3); SODIUM SERUM 140.0 mmol/L (136-145); UREA NITROGEN, BLOOD 17.0 mg/dL (7-18)
[2025-08-07 08:05] VITALS: BP 110/74; TEMP 97.9; O2SAT 98
[2025-08-07 16:00] VITALS: BP 111/73; TEMP 98; O2SAT 98
[2025-08-07 19:59] VITALS: BP 105/53; TEMP 98.1; O2SAT 97
[2025-08-08 05:14] VITALS: BP 99/58; TEMP 98.1; O2SAT 95
[2025-08-08 08:30] VITALS: BP 102/70; TEMP 98.3; O2SAT 98
[2025-08-08 20:05] VITALS: BP 117/51; TEMP 98.6; O2SAT 99
[2025-08-09 06:53] VITALS: BP 127/52; TEMP 98.6; O2SAT 95
[2025-08-09 08:30] VITALS: BP 114/65; TEMP 98.1; O2SAT 98
[2025-08-09 19:28] VITALS: BP 123/59; TEMP 97.3; O2SAT 96
[2025-08-10 07:06] VITALS: BP 106/62; TEMP 98.3; O2SAT 95
[2025-08-10 08:07] VITALS: BP 101/60; TEMP 97.8; O2SAT 98
[2025-08-10 16:29] VITALS: BP 133/73; TEMP 97.7; O2SAT 97
[2025-08-10 20:00] VITALS: BP 99/45; TEMP 98; O2SAT 99
[2025-08-11 06:00] VITALS: BP 102/42; TEMP 98.1; O2SAT 97
[2025-08-11 07:42] VITALS: BP 103/41; TEMP 97.6; O2SAT 96
[2025-08-11 16:00] VITALS: BP 114/51; TEMP 97.8; O2SAT 98
[2025-08-11 20:00] VITALS: BP 98/47; TEMP 98.3; O2SAT 95
[2025-08-12 06:00] VITALS: BP 113/86; TEMP 97.7; O2SAT 97
[2025-08-12 07:56] VITALS: BP 116/40; TEMP 98.2; O2SAT 97
[2025-08-12 16:46] VITALS: BP 121/49; TEMP 98.2; O2SAT 97
[2025-08-12 20:17] VITALS: BP 118/51; TEMP 97.7; O2SAT 97
[2025-08-12] MEDS: MELATONIN 3 MG TABLET PO PRN (21:01)
[2025-08-13 05:29] VITALS: BP 104/47; TEMP 97.6; O2SAT 97
[2025-08-13 15:50] VITALS: BP 115/48; TEMP 97.7; O2SAT 100
[2025-08-14 06:31] VITALS: BP 116/52; TEMP 98.2; O2SAT 98
[2025-08-14 08:06] VITALS: BP 116/46; TEMP 98.1; O2SAT 97
[2025-08-14 16:29] VITALS: BP 118/32; TEMP 98.4; O2SAT 97
[2025-08-14] MEDS: ZOLPIDEM 5 MG TABLET PO SCH (21:31)
[2025-08-15 08:00] VITALS: BP 105/55; TEMP 98; O2SAT 95
[2025-08-15 16:00] VITALS: BP 116/59; TEMP 97.9; O2SAT 98
[2025-08-15 20:06] VITALS: BP 114/56; TEMP 97.8; O2SAT 98
[2025-08-16 06:43] VITALS: BP 91/46; TEMP 98.2; O2SAT 98
[2025-08-16 08:30] VITALS: BP 104/49; TEMP 98; O2SAT 96
[2025-08-16 17:00] VITALS: BP 120/78; TEMP 97.5; O2SAT 98
[2025-08-16 21:31] VITALS: BP 101/51; TEMP 98.1; O2SAT 96
[2025-08-17 06:38] VITALS: BP 111/48; TEMP 98; O2SAT 95
[2025-08-17 08:00] VITALS: BP 100/50; TEMP 97.5; O2SAT 96
[2025-08-17 16:50] VITALS: BP 109/51; TEMP 98; O2SAT 99
[2025-08-17 21:48] VITALS: BP 121/49; TEMP 98.2; O2SAT 98
[2025-08-18 07:04] VITALS: BP 105/52; TEMP 98.1; O2SAT 94
[2025-08-18 08:04] VITALS: BP 122/59; TEMP 98.4; O2SAT 96
[2025-08-18 19:37] VITALS: BP 109/48; TEMP 97.4; O2SAT 98
[2025-08-19 06:15] VITALS: BP 107/52; TEMP 98; O2SAT 94
[2025-08-19 08:00] VITALS: BP 89/48; TEMP 98.4; O2SAT 95
== END 2025-08-19 15:15 | DRG 178 ==
PROVIDERS: ADMIT Physical Medicine & Rehabilitation Pain Medicine; ATTEND Physical Medicine & Rehabilitation Pain Medicine
DX: U07.1 COVID-19 (principal); N39.0 Urinary tract infection, site not specified; R53.1 Weakness; E78.5 Hyperlipidemia, unspecified; N32.81 Overactive bladder; M81.0 Age-related osteoporosis without current pathological fracture; Z85.3 Personal history of malignant neoplasm of breast; K21.9 Gastro-esophageal reflux disease without esophagitis; G35.D Multiple sclerosis, unspecified; Z91.81 History of falling; R60.0 Localized edema; Z99.3 Dependence on wheelchair; E66.9 Obesity, unspecified; F32.A Depression, unspecified; Z88.0 Allergy status to penicillin; Z88.1 Allergy status to other antibiotic agents
CPT/HCPCS: 36415; 83735; 84100; 85025; 97535-GO-CO; A4663; J1650